=== PATIENT | male | born 1970 | race Caucasian/White ===

== ENCOUNTER 2016-08-10 22:38 | Emergency (ER) | payer OTHER ==
[2016-08-10 23:05] VITALS: RESP 18
[2016-08-10] MEDS ORDERED: KETOROLAC 60 MG/2 ML VIAL IM STA (23:12)
--- NOTE | 2016-08-10 23:16 | ED ---
Lower Extremity Injury HPI - General Chief Complaint: Extremity Injury, Lower Stated Complaint: left knee pain Time Seen by Provider: 08/10/16 23:07 Source: patient, RN notes reviewed Mode of arrival: ambulatory Limitations: no limitations - History of Present Illness Initial Comments: 46 yo mal presents to the ER with cc of left knee pain. Patient has a history of surgery to left in the past due to a tendon injury Patient states this is a leg gave out twice a week had some pain in the posterior knee. Patient states it just feels weak and tired strength like he has increased pain on stretching. Patient states he hasn't had any fever chills with this. Patient denies there is no back pain. Falls traumas or injuries. Patient states she was concerned due to the pains without that he should be seen.Patient denies any recent fever, chills, shortness of breath, chest pain, back pain, abdominal pain , nausea vomiting, numbness or tingling, dysuria or hematuria, constipation or diarrhea, headaches or visual changes, or any other current symptoms. - Related Data Home Medications Medication Instructions Recorded Confirmed oxyCODONE-APAP 10-325MG [Percocet 1 tab PO Q6HR PRN 07/16/15 08/10/16 10-325 mg] Aspirin 81 mg PO DAILY 11/20/15 08/10/16 Albuterol Sulfate [Proair Hfa] 2 puff INHALATION RT-Q6H PRN 08/10/16 08/10/16 Ibuprofen [Motrin] 800 mg PO TID PRN 08/10/16 08/10/16 Previous Rx's Medication Instructions Recorded Orphenadrine [Norflex] 100 mg PO Q12H PRN #12 tablet.er 12/11/15 Allergies Allergy/AdvReac Type Severity Reaction Status Date / Time amoxicillin AdvReac Nausea & Verified 08/10/16 23:32 Vomiting Review of Systems ROS Statement: Those systems with pertinent positive or pertinent negative responses have been documented in the HPI. ROS Other: All systems not noted in ROS Statement are negative. Past Medical History Past Medical History: No Reported History Additional Past Medical History / Comment(s): shingles History of Any Multi-Drug Resistant Organisms: None Reported Past Surgical History: Orthopedic Surgery Additional Past Surgical History / Comment(s): rt shoulder , left knee sx Past Psychological History: No Psychological Hx Reported Smoking Status: Current every day smoker Past Alcohol Use History: None Reported Past Drug Use History: Marijuana General Exam - General Exam Comments Initial Comments: General: The patient is awake and alert, in no distress, and does not appear acutely ill. Neck: The neck is supple, there is no tenderness. Cardiovascular: There is a regular rate and rhythm. No murmur, rub or gallop is appreciated. Respiratory: Lungs are clear to auscultation, respirations are non-labored, breath sounds are equal. No wheezes, stridor, rales, or rhonchi. Musculoskeletal: Sensation intact with 2+ pulses at the left flexion. Full range motion of left hip left knee and left ankle. Patient has has some tenderness with patient posterior knee pain with full range of motion of the posterior knee as well. No deformityswelling noted. 5 out of 5 muscle strength testing. Neurological: CN II-XII intact, There are no obvious motor or sensory deficits. Coordination appears grossly intact. Speech is normal. Skin: Skin is warm and dry and no rashes or lesions are noted. Psychiatric: Normal mood and affect. Limitations: no limitations Course Vital Signs 08/10/16 23:03 Temperature 97.9 F Pulse Rate 86 Respiratory 18 Rate Blood Pressure 114/72 O2 Sat by Pulse 98 Oximetry Medical Decision Making - Medical Decision Making 46-year-old male presents emergency Department chief complaint of left knee pain. At this time the patient's x-rays reviewed and he wasn't 100 reactive 100 and. We did give him a new bites or he informed to follow-up with orthopedic. We discussed return parameters discussed. He stated he understood he is in agreement with the plan and follow-up and return parameters were discussed. The patient will be discharged. Disposition Clinical Impression: Left knee sprain, Osteochondroma of fibula Disposition: HOME SELF-CARE Condition: Stable Instructions: Knee Sprain (ED) Additional Instructions: Please use medication as discussed. Please follow up with family doctor if symptoms have not improved over the next two days. Please return to the emergency room if your symptoms increase or worsen or for any other concerns. Referrals: Armando Dixon DO [Primary Care Provider] - 1-2 days Shay Quigley MD [STAFF PHYSICIAN] - 1-2 days Time of Disposition: 01:03
--- NOTE | 2016-08-11 00:45 | XR ---
EXAMINATION TYPE: XR knee complete LT DATE OF EXAM: 08/10/2016 11:26 PM CLINICAL HISTORY: Left knee gave out anterior medial pain that radiates to the left foot history of p atellar tendon repair TECHNIQUE: Three views of the left knee are obtained. COMPARISON: None. FINDINGS: There is no acute fracture/dislocation evident in left knee. Mild degenerative arthritic changes are present to in the left kidney especially in the patellofemora l joint. Mild effusion is noted in the left suprapatellar bursa and rest of the left knee joint. Mild soft tissue swelling is noted around the left knee. There is suggestion of benign appearing osteochondroma with bone projection in the medial aspect of n emma of the left fibula. IMPRESSION: There is no acute fracture or dislocation in the left knee. Mild degenerative changes. Mild effusion and soft tissue swelling. Benign-appearing osteochondroma is suggested in the neck of the left fibula in the medial aspect.
[2016-08-11 01:18] VITALS: BP 110/66; PULSE 67; TEMP 96.9
== END 2016-08-11 01:18 | disposition home or self-care (01) ==
LOC: EC 22:38
DX: S83.92XA Sprain of unspecified site of left knee, initial encounter (principal); D16.22 Benign neoplasm of long bones of left lower limb; Z79.82 Long term (current) use of aspirin; Z88.0 Allergy status to penicillin; F17.200 Nicotine dependence, unspecified, uncomplicated; X58.XXXA Exposure to other specified factors, initial encounter
CPT/HCPCS: 73562; 99283; 96372; L1830 ×2; J1885

== ENCOUNTER 2017-01-27 01:02 | Emergency (ER) | payer OTHER ==
[2017-01-27 01:22] VITALS: TEMP 97.7
[2017-01-27] MEDS ORDERED: KETOROLAC 60 MG/2 ML VIAL IM STA (01:39)
[2017-01-27] MEDS ORDERED: ORPHENADRINE 30 MG/ML 2 ML VIAL IM STA (01:39)
--- NOTE | 2017-01-27 02:51 | XR ---
EXAM: XR Cervical Spine, Single lateral view CLINICAL HISTORY: Pain TECHNIQUE: Frontal, lateral and oblique views of the cervical spine. COMPARISON: No relevant prior studies available. FINDINGS: Vertebrae: Unremarkable. No acute fracture. Normal alignment. Disc spaces: No acute findings. No significant narrowing. Soft tissues: Unremarkable. IMPRESSION: Normal cervical spine x-rays.
--- NOTE | 2017-01-27 02:53 | ED ---
Neck Injury/Pain HPI - General Chief Complaint: Neck Pain/Injury Stated Complaint: neck pain Time Seen by Provider: 01/27/17 01:26 Source: RN notes reviewed, old records reviewed Mode of arrival: ambulatory Limitations: no limitations - History of Present Illness Initial Comments: Referring male presents the ED chief complaint of neck pain for the past few weeks. Patient reports that became acutely worse over the past day. He reports that he has pain with turning his head left to right. He denies any other associated symptoms. He states he had any x-rays done her known pathology of his neck. Denies any trauma or falls. Patient denies any peripheral paresthesias including numbness or tingling, left arms and legs. - Related Data Home Medications Medication Instructions Recorded Confirmed oxyCODONE-APAP 10-325MG [Percocet 1 tab PO Q6HR PRN 07/16/15 08/10/16 10-325 mg] Aspirin 81 mg PO DAILY 11/20/15 08/10/16 Albuterol Sulfate [Proair Hfa] 2 puff INHALATION RT-Q6H PRN 08/10/16 08/10/16 Ibuprofen [Motrin] 800 mg PO TID PRN 08/10/16 08/10/16 Previous Rx's Medication Instructions Recorded Orphenadrine [Norflex] 100 mg PO Q12H PRN #12 tablet.er 12/11/15 Acetaminophen-Codeine 300-30mg 1 tab PO Q6H PRN #12 tablet 01/27/17 [Tylenol #3] Cyclobenzaprine [Flexeril] 10 mg PO TID #15 tab 01/27/17 Allergies Allergy/AdvReac Type Severity Reaction Status Date / Time amoxicillin AdvReac Nausea & Verified 01/27/17 01:22 Vomiting Review of Systems ROS Statement: Those systems with pertinent positive or pertinent negative responses have been documented in the HPI. ROS Other: All systems not noted in ROS Statement are negative. Past Medical History Past Medical History: No Reported History Additional Past Medical History / Comment(s): shingles History of Any Multi-Drug Resistant Organisms: None Reported Past Surgical History: Orthopedic Surgery Additional Past Surgical History / Comment(s): rt shoulder , left knee sx Past Psychological History: No Psychological Hx Reported Smoking Status: Current every day smoker Past Alcohol Use History: None Reported Past Drug Use History: Marijuana General Exam Limitations: no limitations Course Vital Signs 01/27/17 01:19 Temperature 97.7 F Pulse Rate 74 Respiratory 20 Rate Blood Pressure 122/82 O2 Sat by Pulse 99 Oximetry Disposition Clinical Impression: Neck muscle spasm Disposition: HOME SELF-CARE Condition: Good Instructions: Cervical Strain (ED) Additional Instructions: Patient advised to follow-up with orthopedic and primary care provider. Take the muscle relaxers. Return to the emergency department if any alarming signs or symptoms occur. Prescriptions: Acetaminophen-Codeine 300-30mg [Tylenol #3] 1 tab PO Q6H PRN #12 tablet PRN Reason: Pain Cyclobenzaprine [Flexeril] 10 mg PO TID #15 tab Referrals: Armando Dixon DO [Primary Care Provider] - 1-2 days Time of Disposition: 02:51
[2017-01-27 02:55] VITALS: BP 113/74; PULSE 54; RESP 18
== END 2017-01-27 03:01 | disposition home or self-care (01) ==
LOC: EC 01:02
DX: M62.838 Other muscle spasm (principal); F17.200 Nicotine dependence, unspecified, uncomplicated; Z79.82 Long term (current) use of aspirin; Z88.0 Allergy status to penicillin
CPT/HCPCS: 72040; 99284; 96372 ×2; J2360; J1885

== ENCOUNTER 2017-11-15 14:51 | Emergency (ER) | payer OTHER ==
[2017-11-15] MEDS ORDERED: ORPHENADRINE 30 MG/ML 2 ML VIAL IM STA (15:48)
[2017-11-15] MEDS ORDERED: KETOROLAC 30 MG/ML 1 ML VIAL IM STA (15:48)
--- NOTE | 2017-11-15 15:50 | ED ---
Neck Injury/Pain HPI - General Chief Complaint: Neck Pain/Injury Stated Complaint: cannot turn head/poss pinched nerve Time Seen by Provider: 11/15/17 15:34 Source: patient, RN notes reviewed Mode of arrival: ambulatory Limitations: no limitations - History of Present Illness Initial Comments: This is a 47-year-old male who presents to the emergency department with chief complaint of neck stiffness. Patient states that he woke this morning and had difficulty turning his head due to pain. He denies any falls, injuries or trauma. He did not take any medication prior to arrival. He denies any numbness or tingling or radiation of pain down the arms. Denies recent fevers or chills, chest pain or shortness breath, abdominal pain, nausea or vomiting, dizziness or headache. - Related Data Home Medications Medication Instructions Recorded Confirmed oxyCODONE-APAP 10-325MG [Percocet 1 tab PO Q6HR PRN 07/16/15 08/10/16 10-325 mg] Aspirin 81 mg PO DAILY 11/20/15 08/10/16 Albuterol Sulfate [Proair Hfa] 2 puff INHALATION RT-Q6H PRN 08/10/16 08/10/16 Ibuprofen [Motrin] 800 mg PO TID PRN 08/10/16 08/10/16 Previous Rx's Medication Instructions Recorded Orphenadrine [Norflex] 100 mg PO Q12H PRN #12 tablet.er 12/11/15 Acetaminophen-Codeine 300-30mg 1 tab PO Q6H PRN #12 tablet 01/27/17 [Tylenol #3] Cyclobenzaprine [Flexeril] 10 mg PO TID #15 tab 01/27/17 Allergies Allergy/AdvReac Type Severity Reaction Status Date / Time amoxicillin AdvReac Nausea & Verified 11/15/17 15:29 Vomiting Review of Systems ROS Statement: Those systems with pertinent positive or pertinent negative responses have been documented in the HPI. ROS Other: All systems not noted in ROS Statement are negative. Past Medical History Past Medical History: No Reported History Additional Past Medical History / Comment(s): shingles History of Any Multi-Drug Resistant Organisms: None Reported Past Surgical History: Orthopedic Surgery Additional Past Surgical History / Comment(s): rt shoulder , left knee sx Past Psychological History: No Psychological Hx Reported Smoking Status: Current every day smoker Past Alcohol Use History: None Reported Past Drug Use History: Marijuana General Exam - General Exam Comments Initial Comments: General: Awake and alert, well-developed; in no apparent distress. HEENT: Head atraumatic, normocephalic. Pupils are equal, round and reactive to light. Extraocular movements intact. Oropharynx moist without erythema or exudate. Neck: Supple. Normal ROM, however pain is elicited with rotation. There is tenderness on palpation of cervical musculature. No bony point tenderness. Cardiovascular: Regular rate and rhythm. No murmurs, rubs or gallops. Chest symmetrical. Respiratory: Lungs clear to auscultation bilaterally. No wheezes, rales or rhonchi. Normal respiratory effort with no use of accessory muscles. Musculoskeletal: Normal ROM, no tenderness bilateral upper and lower extremities. Ambulating normally. Skin: [place], warm and dry without rashes or lesions. Neurological: Alert and oriented x3. CN II-XII grossly intact. Speech is fluent and answers are appropriate. No focal neuro deficits. Psychiatric: Normal mood and affect. No overt signs of depression or anxiety noted. Limitations: no limitations Course Vital Signs 11/15/17 15:26 Temperature 97.3 F L Pulse Rate 62 Respiratory 18 Rate Blood Pressure 139/96 O2 Sat by Pulse 97 Oximetry Medical Decision Making - Medical Decision Making This is a 47-year-old male who presents to the emergency department with chief complaint of acute neck pain. Patient states he awoke this morning with a stiff neck and has difficulty rotating due to pain. Denies any fevers or chills. Denies any numbness or tingling or radiation of pain down the arms. He is neurovascularly intact. Vital signs are stable and he is in no acute distress. Denies any injuries, falls or trauma. Patient given Toradol and Norflex while in the emergency department. Patient states pain is improved. Likely suffering from cervical strain. Recommended ibuprofen 600 mg every 6 hours. Patient will be discharged home at this time. He is in agreement with plan and voices understanding. All questions were answered. Disposition Clinical Impression: Strain of neck muscle Disposition: HOME SELF-CARE Condition: Good Instructions: Cervical Strain (ED) Additional Instructions: May take ibuprofen 600 mg every 6 hours for the next 2-3 days. Please follow up with primary care provider within 1-2 days. Return to emergency department if symptoms should worsen or any concerns arise. Is patient prescribed a controlled substance at d/c from ED?: No Referrals: Armando Dixon DO [Primary Care Provider] - 1-2 days Time of Disposition: 16:15
[2017-11-15 16:26] VITALS: BP 121/82; PULSE 60; RESP 16; TEMP 97.6
== END 2017-11-15 16:26 | disposition home or self-care (01) ==
LOC: EC 14:51
DX: S16.1XXA Strain of muscle, fascia and tendon at neck level, initial encounter (principal); F17.200 Nicotine dependence, unspecified, uncomplicated; Z79.82 Long term (current) use of aspirin; Z88.0 Allergy status to penicillin; X58.XXXA Exposure to other specified factors, initial encounter
CPT/HCPCS: 99283; 96372 ×2; J2360; J1885

== ENCOUNTER 2017-11-30 11:39 | Emergency (ER) | payer OTHER ==
[2017-11-30 12:31] LABS: Basophils % (A) 1 %; Eosinophils # (A) 0.2 k/uL (0-0.7); Eosinophils % (A) 3 %; HCT 53.9 % (39.0-53.0); HGB 18.4 gm/dL (13.0-17.5); Lymphocytes # (A) 1.7 k/uL (1.0-4.8); Lymphocytes % (A) 21 %; MCH 30.6 pg (25.0-35.0); MCHC 34.2 g/dL (31.0-37.0); MCV 89.7 fL (80.0-100.0); Mean Platelet Volume 6.9; Monocytes # (A) 0.4 k/uL (0-1.0); Monocytes % (A) 5 %; Neutrophils # (A) 5.7 k/uL (1.3-7.7); Neutrophils % (A) 69 %; Platelet Count 252 k/uL (150-450); RDW 13.1 % (11.5-15.5); WBC 8.2 k/uL (3.8-10.6)
[2017-11-30 12:33] LABS: Appearance,Urine Clear (Clear); Bilirubin,Urine Negative (Negative); Blood,Urine Negative (Negative); Color,Urine Yellow; Glucose,Urine (UA) Negative (Negative); Ketones,Urine 2+ (Negative); Leukocyte Esterase,Urine Negative (Negative); Nitrite,Urine Negative (Negative); Protein,Urine Negative (Negative); Specific Gravity,Urine 1.009 (1.001-1.035); Urobilinogen,Urine <2.0 mg/dL (<2.0)
[2017-11-30 12:42] LABS: ALT 40 U/L (21-72); AST 31 U/L (17-59); Albumin 4.6 g/dL (3.5-5.0); Alkaline Phosphatase 70 U/L (38-126); Amylase 54 U/L (30-110); Anion Gap 14 mmol/L; Blood Urea Nitrogen 9 mg/dL (9-20); Calcium 9.7 mg/dL (8.4-10.2); Carbon Dioxide 22 mmol/L (22-30); Chloride 107 mmol/L (98-107); Glucose 116 mg/dL (74-99); Lipase 36 U/L (23-300); Potassium 4.1 mmol/L (3.5-5.1); Sodium 143 mmol/L (137-145); Total Bilirubin 1.1 mg/dL (0.2-1.3); Total Protein 7.4 g/dL (6.3-8.2)
[2017-11-30] MEDS ORDERED: ONDANSETRON ODT 4 MG TAB PO STA (13:19)
[2017-11-30] MEDS ORDERED: ONDANSETRON 4 MG ODT STARTER PACK 2 TAB BTL PO STA (13:39)
--- NOTE | 2017-11-30 13:42 | ED ---
Nausea/Vomiting/Diarrhea HPI - General Chief complaint: Nausea/Vomiting/Diarrhea Stated complaint: NVD Time Seen by Provider: 11/30/17 13:18 Source: patient, RN notes reviewed Mode of arrival: ambulatory Limitations: no limitations - History of Present Illness Initial comments: This is a 47-year-old male presents emergency Department chief complaint of nausea vomiting diarrhea. Patient states symptoms started yesterday and have slightly improved today but he still had some upset stomach feeling. He has primarily more diarrhea has not vomited in 2 hours. Patient denies any known fever complaints of chills. He denies any sick contacts no recent antibiotic use no recent traveling. Patient said no prior abdominal surgeries. Patient denies chest pain, shortness breath, headache or dizziness. - Related Data Home Medications Medication Instructions Recorded Confirmed Naproxen Sodium [Aleve] 220 mg PO BID PRN 11/30/17 11/30/17 diphenhydrAMINE HCL [Benadryl] 25 mg PO Q6H PRN 11/30/17 11/30/17 Previous Rx's Medication Instructions Recorded Ondansetron Odt [Zofran Odt] 4 mg PO Q8HR PRN #10 tab 11/30/17 Allergies Allergy/AdvReac Type Severity Reaction Status Date / Time amoxicillin AdvReac Nausea & Verified 11/30/17 13:16 Vomiting Review of Systems ROS Statement: Those systems with pertinent positive or pertinent negative responses have been documented in the HPI. ROS Other: All systems not noted in ROS Statement are negative. Past Medical History Past Medical History: No Reported History Additional Past Medical History / Comment(s): shingles tendonitis and carpel tunnel History of Any Multi-Drug Resistant Organisms: None Reported Past Surgical History: Orthopedic Surgery Additional Past Surgical History / Comment(s): rt shoulder , left knee sx Past Psychological History: No Psychological Hx Reported Smoking Status: Current every day smoker Past Alcohol Use History: None Reported Past Drug Use History: Marijuana General Exam Limitations: no limitations General appearance: alert, in no apparent distress Head exam: Present: atraumatic, normocephalic, normal inspection Eye exam: Present: normal appearance, PERRL, EOMI. Absent: scleral icterus, conjunctival injection, periorbital swelling ENT exam: Present: normal exam, normal oropharynx, mucous membranes moist Neck exam: Present: normal inspection. Absent: tenderness, meningismus, lymphadenopathy Respiratory exam: Present: normal lung sounds bilaterally. Absent: respiratory distress, wheezes, rales, rhonchi, stridor Cardiovascular Exam: Present: regular rate, normal rhythm, normal heart sounds. Absent: systolic murmur, diastolic murmur, rubs, gallop, clicks GI/Abdominal exam: Present: soft, tenderness (Mild epigastric), normal bowel sounds. Absent: distended, guarding, rebound, rigid Course Vital Signs 11/30/17 11:57 Temperature 98.3 F Pulse Rate 77 Respiratory 18 Rate Blood Pressure 124/96 O2 Sat by Pulse 99 Oximetry Medical Decision Making - Medical Decision Making 47-year-old male presented for nausea vomiting diarrhea. Patient has gastroenteritis. Patient we given Zofran. Patient's abdomen essentially benign other than mild epigastric pain from emesis. Patient will follow-up tomorrow return for any worsening symptoms. - Lab Data Result diagrams: 11/30/17 12:19 11/30/17 12:19 Lab Results 11/30/17 11/30/17 11/30/17 Range/Units 12:19 12:19 12:19 WBC 8.2 (3.8-10.6) k/uL RBC 6.00 H (4.30-5.90) m/uL Hgb 18.4 H (13.0-17.5) gm/dL Hct 53.9 H (39.0-53.0) % MCV 89.7 (80.0-100.0) fL MCH 30.6 (25.0-35.0) pg MCHC 34.2 (31.0-37.0) g/dL RDW 13.1 (11.5-15.5) % Plt Count 252 (150-450) k/uL Neutrophils % 69 % Lymphocytes % 21 % Monocytes % 5 % Eosinophils % 3 % Basophils % 1 % Neutrophils # 5.7 (1.3-7.7) k/uL Lymphocytes # 1.7 (1.0-4.8) k/uL Monocytes # 0.4 (0-1.0) k/uL Eosinophils # 0.2 (0-0.7) k/uL Basophils # 0.0 (0-0.2) k/uL Sodium 143 (137-145) mmol/L Potassium 4.1 (3.5-5.1) mmol/L Chloride 107 (98-107) mmol/L Carbon Dioxide 22 (22-30) mmol/L Anion Gap 14 mmol/L BUN 9 (9-20) mg/dL Creatinine 0.73 (0.66-1.25) mg/dL Est GFR (CKD-EPI)AfAm >90 (>60 ml/min/1.73 sqM) Est GFR (CKD-EPI)NonAf >90 (>60 ml/min/1.73 sqM) Glucose 116 H (74-99) mg/dL Calcium 9.7 (8.4-10.2) mg/dL Total Bilirubin 1.1 (0.2-1.3) mg/dL AST 31 (17-59) U/L ALT 40 (21-72) U/L Alkaline Phosphatase 70 (38-126) U/L Total Protein 7.4 (6.3-8.2) g/dL Albumin 4.6 (3.5-5.0) g/dL Amylase 54 (30-110) U/L Lipase 36 (23-300) U/L Urine Color Yellow Urine Appearance Clear (Clear) Urine pH 6.0 (5.0-8.0) Ur Specific [place] 1.009 (1.001-1.035) Urine Protein Negative (Negative) Urine Glucose (UA) Negative (Negative) Urine Ketones 2+ H (Negative) Urine Blood Negative (Negative) Urine Nitrite Negative (Negative) Urine Bilirubin Negative (Negative) Urine Urobilinogen <2.0 (<2.0) mg/dL Ur Leukocyte Esterase Negative (Negative) Disposition Clinical Impression: Gastroenteritis Disposition: HOME SELF-CARE Condition: Stable Instructions: Gastroenteritis (ED) Additional Instructions: Please return to the Emergency Department if symptoms worsen or any other concerns. Prescriptions: Ondansetron Odt [Zofran Odt] 4 mg PO Q8HR PRN #10 tab PRN Reason: Nausea Is patient prescribed a controlled substance at d/c from ED?: No Referrals: Armando Dixon DO [Primary Care Provider] - 1-2 days Time of Disposition: 13:42
[2017-11-30 13:50] VITALS: BP 127/77; PULSE 55; RESP 20; TEMP 98.6
== END 2017-11-30 14:00 | disposition home or self-care (01) ==
LOC: EC 11:39
DX: K52.9 Noninfective gastroenteritis and colitis, unspecified (principal); F17.200 Nicotine dependence, unspecified, uncomplicated; Z88.0 Allergy status to penicillin
CPT/HCPCS: 36415; 80053; 82150; 83690; 85025; 81003; 99284; S0119

== ENCOUNTER 2018-05-06 14:12 | Emergency (ER) | payer OTHER ==
[2018-05-06 14:31] VITALS: RESP 18
[2018-05-06] MEDS ORDERED: KETOROLAC 30 MG/ML 1 ML VIAL IM STA (15:29)
[2018-05-06] MEDS ORDERED: ORPHENADRINE 30 MG/ML 2 ML VIAL IM STA (15:29)
--- NOTE | 2018-05-06 15:53 | CT ---
EXAMINATION TYPE: CT lumbar spine wo con DATE OF EXAM: 05/06/2018 COMPARISON: HISTORY: LOWER BACK PAIN X3 DAYS CT DLP: 596.3 mGycm Contrast: None TECHNIQUE: CT of the lumbar spine is performed on a spiral scan at 3 mm thick sections. Reconstructed images are performed in the coronal and sagittal planes. FINDINGS: T12-L1: No focal disc herniation or significant disc bulge is evident. No spinal canal stenosis or neural foraminal stenosis is present. L1-L2: No focal disc herniation or significant disc bulge is evident. No spinal canal stenosis or n eural foraminal stenosis is present L2-L3: No focal disc herniation or significant disc bulge is evident. No spinal canal stenosis or n eural foraminal stenosis is present L3-L4: No focal disc herniation or significant disc bulge is evident. No spinal canal stenosis or n eural foraminal stenosis is present L4-L5: No focal disc herniation or significant disc bulge is evident. No spinal canal stenosis or n eural foraminal stenosis is present L5-S1: No focal disc herniation or significant disc bulge is evident. No spinal canal stenosis or n eural foraminal stenosis is present Vertebral alignment appears normal. No acute fracture evident. Vertebral body heights and disc height s appear preserved. IMPRESSION: No suspicious acute changes lumbar spine.
--- NOTE | 2018-05-06 16:40 | ED ---
General Adult HPI - General Chief complaint: Neck Pain/Injury Stated complaint: Neck pain Time Seen by Provider: 05/06/18 15:14 Source: patient, RN notes reviewed Mode of arrival: ambulatory Limitations: no limitations - History of Present Illness Initial comments: 48-year-old male presents to the emergency determine for chief complaint of neck pain times one year. Patient states that he has intermittent worsening of pain. He states that today is one of those days. He states he has terminated tingling in the arms. He denies numbness or shooting pain. He states he does have shooting pain in his neck. Patient also states he has lumbar spine pain. He states this has been going on for a few weeks. He denies any shooting pain but does admit to tingling in the lower extremities. Patient states his leg did give out twice yesterday. Patient is unsure if this was due to weakness or pain. He states he also has a patellar tendon injury and this may have been the cause of his leg giving out. Patient has not had an MRI. He states he just got insurance and will be following up with the primary care provider shortly. He denies any bladder or bowel changes. He denies any saddle anesthesia. Patient denies any history of IV drug abuse, fevers, chronic steroid use, or history of cancer.Patient has no other complaints at this time including shortness of breath, chest pain, abdominal pain, nausea or vomiting, headache, or visual changes. - Related Data Home Medications Medication Instructions Recorded Confirmed Naproxen Sodium [Aleve] 220 mg PO BID PRN 11/30/17 05/06/18 diphenhydrAMINE HCL [Benadryl] 25 mg PO Q6H PRN 11/30/17 05/06/18 Allergies Allergy/AdvReac Type Severity Reaction Status Date / Time amoxicillin AdvReac Nausea & Verified 05/06/18 14:56 Vomiting Review of Systems ROS Statement: Those systems with pertinent positive or pertinent negative responses have been documented in the HPI. ROS Other: All systems not noted in ROS Statement are negative. Past Medical History Past Medical History: No Reported History Additional Past Medical History / Comment(s): shingles tendonitis and carpel tunnel History of Any Multi-Drug Resistant Organisms: None Reported Past Surgical History: Orthopedic Surgery Additional Past Surgical History / Comment(s): rt shoulder , left knee sx Past Psychological History: No Psychological Hx Reported Smoking Status: Current every day smoker Past Alcohol Use History: None Reported Past Drug Use History: Marijuana General Exam Limitations: no limitations General appearance: alert, in no apparent distress Head exam: Present: atraumatic, normocephalic, normal inspection Eye exam: Present: normal appearance, PERRL, EOMI. Absent: scleral icterus, conjunctival injection, periorbital swelling ENT exam: Present: normal exam, mucous membranes moist Neck exam: Present: normal inspection, full ROM. Absent: tenderness, meningismus, lymphadenopathy Respiratory exam: Present: normal lung sounds bilaterally. Absent: respiratory distress, wheezes, rales, rhonchi, stridor Cardiovascular Exam: Present: regular rate, normal rhythm, normal heart sounds. Absent: systolic murmur, diastolic murmur, rubs, gallop, clicks GI/Abdominal exam: Present: soft, normal bowel sounds. Absent: distended, tenderness, guarding, rebound, rigid Extremities exam: Present: full ROM (Strength 5 out of 5 in upper and lower extremities bilaterally. [facility] strength 5 out of 5 bilaterally.), normal capillary refill (Capillary refill less than 2 seconds DP pulses 2+ in BLE. Radial pulses 2+ and upper extremities bilaterally), other (Patient has sensation intact in all extremities.) Back exam: Present: tenderness (Tenderness in the cervical and lumbar spines). Absent: CVA tenderness (R), CVA tenderness (L) Neurological exam: Present: alert, oriented X3, CN II-XII intact, normal gait Psychiatric exam: Present: normal affect, normal mood Course Vital Signs 05/06/18 14:29 Temperature 97.7 F Pulse Rate 78 Respiratory 18 Rate Blood Pressure 153/83 O2 Sat by Pulse 97 Oximetry Medical Decision Making - Medical Decision Making 48-year-old male presents to the emergency department for a chief complaint of neck pain times one year. Patient states he has radiating pain down the arms as well as tingling. States this has been ongoing chronically. Patient also has back pain for the past few weeks. Patient states he may have weakness in the legs. He states his left leg gave out that he is unsure if this was due to pain. Patient also has patellar tendinopathy and states it may have been due to that. On exam neurovascular intact in upper and lower extremities bilaterally. Patient is able to ambulate normally. Patient denies any saddle anesthesia or changes in bladder or bowel function. Patient has full strength in upper and lower extremities bilaterally. Computed tomography scan was ordered of the lumbar spinous patient was unsure if he was having weakness in the lower semis which was negative for any disc herniation or abnormality. At this point patient is likely expressing chronic cervical radiculopathy. He will take Motrin and Tylenol for pain. He will follow-up with Dr. Toscano in one to 2 days. He will return immediately to the emergency department if he has any worsening symptoms, bladder or bowel changes, or saddle anesthesia which was discussed with him. Patient agrees with this plan of action. He asks for a work note as he did not go to work today. All questions were answered. Disposition Clinical Impression: Cervical radiculopathy, Lumbar radiculopathy Disposition: HOME SELF-CARE Condition: Good Instructions: Neck Pain (ED) Additional Instructions: Please take Motrin and Tylenol for pain. Please follow-up with primary care in 1-2 days. Return immediately to the emergency department if you have any worsening symptoms. Is patient prescribed a controlled substance at d/c from ED?: No Referrals: Sigifredo Wilde MD [Primary Care Provider] - 1-2 days Luiz Toscano DO [Doctor of Osteopathic Medicine] - 1-2 days Time of Disposition: 16:39
[2018-05-06 22:54] VITALS: BP 150/80; PULSE 76; TEMP 98
== END 2018-05-06 17:23 | disposition home or self-care (01) ==
LOC: EC 14:12
DX: M54.12 Radiculopathy, cervical region (principal); M54.16 Radiculopathy, lumbar region; M76.50 Patellar tendinitis, unspecified knee; F17.200 Nicotine dependence, unspecified, uncomplicated; Z98.890 Other specified postprocedural states; Z88.0 Allergy status to penicillin
CPT/HCPCS: 72131; 99283; 96372 ×2; J2360; J1885

== ENCOUNTER 2018-05-09 09:44 | Emergency (ER) | payer OTHER ==
[2018-05-09 10:51] VITALS: BP 131/93; PULSE 74; RESP 18; TEMP 98
[2018-05-09] MEDS ORDERED: ORPHENADRINE 30 MG/ML 2 ML VIAL IM STA (11:13)
[2018-05-09] MEDS ORDERED: KETOROLAC 60 MG/2 ML VIAL IM STA (11:13)
--- NOTE | 2018-05-09 11:31 | ED ---
General Adult HPI - General Chief complaint: Neck Pain/Injury Stated complaint: Neck pain Time Seen by Provider: 05/09/18 11:03 Source: patient, RN notes reviewed, old records reviewed Mode of arrival: ambulatory - History of Present Illness Initial comments: Patient 48-year-old male presented to the emergency room today with a chief complaint neck pain over the last year. Patient is receiving recently and was given Toradol and Norflex which did help his symptoms. He states that he was supposed to follow-up and was unsure which doctor he was supposed to see. Patient states that he was planning to call today. Patient states still having neck pain. Has been using ibuprofen with some relief. He states pain is worse with rotation to the right and both with flexion and extension. Patient denies any injury or trauma. He does admit that he has bilateral numbness and tingling sensation into the arms. He states that this is new and has been going on for some time but seems to be getting worse. Patient denies any complaints or symptoms at this time. Patient denies any recent fever, chills, shortness of breath, chest pain, abdominal pain, nausea or vomiting, dysuria or hematuria, constipation or diarrhea, headaches or visual changes, or any other complaints. - Related Data Home Medications Medication Instructions Recorded Confirmed Naproxen Sodium [Aleve] 220 mg PO BID PRN 11/30/17 05/06/18 diphenhydrAMINE HCL [Benadryl] 25 mg PO Q6H PRN 11/30/17 05/06/18 Previous Rx's Medication Instructions Recorded Orphenadrine [Norflex] 100 mg PO Q12H #20 tablet.er 05/09/18 Allergies Allergy/AdvReac Type Severity Reaction Status Date / Time amoxicillin AdvReac Nausea & Verified 05/06/18 14:56 Vomiting Review of Systems ROS Statement: Those systems with pertinent positive or pertinent negative responses have been documented in the HPI. ROS Other: All systems not noted in ROS Statement are negative. Past Medical History Past Medical History: No Reported History Additional Past Medical History / Comment(s): shingles tendonitis and carpel tunnel History of Any Multi-Drug Resistant Organisms: None Reported Past Surgical History: Orthopedic Surgery Additional Past Surgical History / Comment(s): rt shoulder , left knee sx Past Psychological History: No Psychological Hx Reported Smoking Status: Current every day smoker Past Alcohol Use History: None Reported Past Drug Use History: Marijuana General Exam - General Exam Comments Initial Comments: General: The patient is awake and alert, in no distress, and does not appear acutely ill. Eye: Pupils are equal, round and reactive to light. Extra-ocular movements are intact. No nystagmus. There is normal conjunctiva bilaterally. No signs of icterus. Ears, nose, mouth and throat: There are moist mucous membranes and no oral lesions. Neck: The neck is supple, there is no tenderness or JVD. Cardiovascular: There is a regular rate and rhythm. No murmur, rub or gallop is appreciated. Respiratory: Lungs are clear to auscultation, respirations are non-labored, breath sounds are equal. No wheezes, stridor, rales, or rhonchi. Musculoskeletal: Normal appearance of cervical, thoracic or lumbar spine. No step-off or deformity. Patient does have increased tenderness. Both on left right side of cervical spine. Patient's pain is reproduced with rotation to the left and right. Sensations intact. Radial pulse 2+. Strength 5/5. Neurological: A&O x 3. CN II-XII intact, There are no obvious motor or sensory deficits. Coordination appears grossly intact. Speech is normal. Skin: Skin is warm and dry and no rashes or lesions are noted. Psychiatric: Cooperative, appropriate mood & affect, normal judgment. Course Vital Signs 05/09/18 10:48 Temperature 98.0 F Pulse Rate 74 Respiratory 18 Rate Blood Pressure 131/93 O2 Sat by Pulse 100 Oximetry Medical Decision Making - Medical Decision Making Patient for 8-year-old male presenting for neck pain. He does admit this been ongoing over the last year. There is no new injury or trauma. Was discussed that patient should follow-up with orthopedic doctor. He'll be given information for follow-up once again. Patient states her symptoms today. He states he's had the numbness and tingling into the arms bilaterally for some time. Patient does admit that he was seen here recently for his back pain was given a shot of Toradol and Norflex which did relieve his symptoms. Patient will be given dose is here today will be discharged home continue on anti- inflammatories and given a prescription for Norflex to use at home. Positive may make him drowsy. Advised follow-up orthopedics over the next 2 days. Advised return if symptoms increase or worsen. Disposition Clinical Impression: Cervical radiculopathy, Neck pain Disposition: HOME SELF-CARE Condition: Good Instructions: Cervical Strain (ED) Additional Instructions: Please use medication as discussed. Please follow-up with orthopedic/family doctor in the next 2 days of symptoms have not improved. Please return to emergency room if the symptoms increase or worsen or for any other concerns. Prescriptions: Orphenadrine [Norflex] 100 mg PO Q12H #20 tablet.er Is patient prescribed a controlled substance at d/c from ED?: No Referrals: Sigifredo Wilde MD [Primary Care Provider] - 1-2 days Shay Quigley MD [STAFF PHYSICIAN] - 1-2 days Time of Disposition: 11:30
== END 2018-05-09 12:00 | disposition home or self-care (01) ==
LOC: EC 09:44
DX: M54.12 Radiculopathy, cervical region (principal); F17.200 Nicotine dependence, unspecified, uncomplicated; Z88.0 Allergy status to penicillin
CPT/HCPCS: 99283; 96372 ×2; J2360; J1885

== ENCOUNTER 2018-06-23 07:35 | Emergency (ER) | payer OTHER ==
[2018-06-23 07:40] VITALS: BP 124/83; PULSE 70; RESP 16; TEMP 97.8
[2018-06-23] MEDS ORDERED: ACET/COD 300 MG/30 MG STARTER PACK 6 TAB BTL PO STA (07:53)
--- NOTE | 2018-06-23 07:54 | ED ---
Extremity Problem HPI - General Chief complaint: Extremity Problem,Nontraumatic Stated complaint: elbow pain, shooting to hands Time Seen by Provider: 06/23/18 07:46 Source: patient, RN notes reviewed Mode of arrival: ambulatory Limitations: no limitations - History of Present Illness Initial comments: 48-year-old male presents emergency Department chief complaint of bilateral arm pain and numbness. Patient states that he's had carpal tunnel the past but states this started almost now. Patient states that he's had EMG [address] Sinclair. 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 Patient states that he uses hands daily. Patient states that the more uses hands were symptoms get. He does wake up with his hands numb. Patient denies any weakness associated. Denies any chest pain or shortness of breath. Patient also has known neck issues. Patient states he had a missed work today so he came the emergency department. - Related Data Home Medications Medication Instructions Recorded Confirmed Naproxen Sodium [Aleve] 220 mg PO BID PRN 11/30/17 05/06/18 diphenhydrAMINE HCL [Benadryl] 25 mg PO Q6H PRN 11/30/17 05/06/18 Previous Rx's Medication Instructions Recorded Orphenadrine [Norflex] 100 mg PO Q12H #20 tablet.er 05/09/18 predniSONE 50 mg PO DAILY #5 tab 06/23/18 Allergies Allergy/AdvReac Type Severity Reaction Status Date / Time amoxicillin AdvReac Nausea & Verified 05/06/18 14:56 Vomiting Review of Systems ROS Statement: Those systems with pertinent positive or pertinent negative responses have been documented in the HPI. ROS Other: All systems not noted in ROS Statement are negative. Past Medical History Past Medical History: No Reported History Additional Past Medical History / Comment(s): shingles tendonitis and carpel tunnel chronic neck pain History of Any Multi-Drug Resistant Organisms: None Reported Past Surgical History: Orthopedic Surgery Additional Past Surgical History / Comment(s): rt shoulder , left knee sx Past Psychological History: No Psychological Hx Reported Smoking Status: Current every day smoker Past Alcohol Use History: None Reported Past Drug Use History: Marijuana General Exam Limitations: no limitations General appearance: alert, in no apparent distress Head exam: Present: atraumatic, normocephalic, normal inspection Neck exam: Present: normal inspection, full ROM. Absent: tenderness, meningismus, lymphadenopathy Respiratory exam: Present: normal lung sounds bilaterally. Absent: respiratory distress, wheezes, rales, rhonchi, stridor Cardiovascular Exam: Present: regular rate, normal rhythm, normal heart sounds. Absent: systolic murmur, diastolic murmur, rubs, gallop, clicks Extremities exam: Present: other (Bilateral upper extremities neurovascular intact, full range of motion full-strength, positive Tinel's, tenderness over the ulnar groove region reproducible paresthesias) Course Vital Signs 06/23/18 07:37 Temperature 97.8 F Pulse Rate 70 Respiratory 16 Rate Blood Pressure 124/83 O2 Sat by Pulse 98 Oximetry Medical Decision Making - Medical Decision Making 48-year-old male presented for bilateral arm pain and numbness. Patient has cubital tunnel syndrome with most likely carpal tunnel syndrome. Patient will follow-up with Dr. Sinclair as he seen him in the past. Patient be given steroids. Return parameters were discussed. Disposition Clinical Impression: Cubital tunnel syndrome of both upper extremities Disposition: HOME SELF-CARE Condition: Stable Instructions: Cubital Tunnel Syndrome (ED) Additional Instructions: Please return to the Emergency Department if symptoms worsen or any other concerns. Prescriptions: predniSONE 50 mg PO DAILY #5 tab Is patient prescribed a controlled substance at d/c from ED?: No Referrals: Sigifredo Wilde MD [Primary Care Provider] - 1-2 days Otoniel Sinclair MD [STAFF PHYSICIAN] - 1-2 days Time of Disposition: 07:54
== END 2018-06-23 08:08 | disposition home or self-care (01) ==
LOC: EC 07:35
DX: G56.03 Carpal tunnel syndrome, bilateral upper limbs (principal); F17.200 Nicotine dependence, unspecified, uncomplicated; Z88.0 Allergy status to penicillin
CPT/HCPCS: 99283

== ENCOUNTER 2018-08-29 16:18 | Emergency (ER) | payer OTHER ==
[2018-08-29 17:57] VITALS: BP 128/82; RESP 18; TEMP 98.1
[2018-08-29] MEDS ORDERED: IPRATROPIUM-ALBUTEROL 3 ML NEB INHALATION STA ×2 (18:35→19:14)
[2018-08-29] MEDS ORDERED: methylPREDNISolone SOD SUCCI 125 MG/2 ML VIAL IM ONE (18:35)
[2018-08-29] MEDS ORDERED: HYDROcodone/APAP 7.5-325MG 1 EACH TAB PO ONE (18:36)
--- NOTE | 2018-08-29 19:07 | XR ---
EXAMINATION TYPE: XR chest 2V DATE OF EXAM: 08/29/2018 COMPARISON: 09/17/2014 HISTORY: Neck pain TECHNIQUE: Frontal and lateral views of the chest are obtained. FINDINGS: Heart and mediastinum are normal. Lungs are clear. Diaphragm is normal. Bony thorax is int act. There is minimal pleural thickening at the lung apices. IMPRESSION: No active cardiopulmonary disease. No change.
--- NOTE | 2018-08-29 19:14 | ED ---
URI HPI - General Chief Complaint: Upper Respiratory Infection Stated Complaint: Cough, URI Source: patient Mode of arrival: ambulatory Limitations: no limitations - History of Present Illness Initial Comments: 48-year-old male with past medical history of previous smoking recently quit within last week presenting today for cc of "i have upper respiratory infection " and chronic neck pain. Patient states that he feels he has upper respiratory infection he has had cough sputum production. In addition he states that he has had neck pain he states this is chronic he's had an MRI is following his primary care outpatient. He states he has a nerve test scheduled for Wednesday. He states he does not need further evaluation of the neck, he was requesting medication for the chronic pain. He denies any changes or trauma to the neck. He denies any difficulty with neck stiffness, photophobia or fever. Patient denies any ear pain, sore throat, nausea vomiting of gout pain chest pain dyspnea and dyspnea on exertion, lower extremity edema, numbness tingling or loss sensation, muscle weakness, visual changes or any other complaints today. Upon arrival patient is afebrile, VS within normal limits. - Related Data Home Medications Medication Instructions Recorded Confirmed Naproxen Sodium [Aleve] 220 mg PO DAILY PRN 11/30/17 06/23/18 Aspirin EC [Ecotrin Low Dose] 81 mg PO DAILY 06/23/18 06/23/18 Previous Rx's Medication Instructions Recorded predniSONE 50 mg PO DAILY #5 tab 06/23/18 Albuterol Inhaler [Ventolin Hfa 1 - 2 puff INHALATION RT-Q6H PRN 7 08/29/18 Inhaler] Days #1 inhaler Azithromycin [Zithromax Z-pack] 0 mg PO DIRECTED #6 tab 08/29/18 predniSONE 20 mg PO DAILY 5 Days #5 tab 08/29/18 Allergies Allergy/AdvReac Type Severity Reaction Status Date / Time amoxicillin AdvReac Nausea & Verified 06/23/18 07:59 Vomiting Review of Systems ROS Statement: Those systems with pertinent positive or pertinent negative responses have been documented in the HPI. ROS Other: All systems not noted in ROS Statement are negative. Past Medical History Past Medical History: No Reported History Additional Past Medical History / Comment(s): shingles tendonitis and carpel tunnel chronic neck pain History of Any Multi-Drug Resistant Organisms: None Reported Past Surgical History: Orthopedic Surgery Additional Past Surgical History / Comment(s): rt shoulder , left knee sx Past Psychological History: No Psychological Hx Reported Smoking Status: Current every day smoker Past Alcohol Use History: None Reported Past Drug Use History: Marijuana General Exam - General Exam Comments Initial Comments: General: The patient is awake and alert, in no distress, and does not appear acutely ill. Eye: Pupils are equal, round and reactive to light, extra-ocular movements are intact. No nystagmus. There is normal conjunctiva bilaterally. No signs of icterus. Ears, nose, mouth and throat: There are moist mucous membranes and no oral lesions. No anterior cervical lymphadenopathy. Oropharynx not erythematous, there is no tonsillar enlargement exudates or lesions. Uvula midline. Tympanic membranes are within normal limits bilaterally. No abnormalities noted of the external auditory canals. Neck: The neck is supple, there is no tenderness or JVD. No midline tenderness to palpation of the cervical spine, there is paravertebral tenderness. Cardiovascular: There is a regular rate and rhythm. No murmur, rub or gallop is appreciated. Respiratory: Lungs are clear to auscultation, respirations are non-labored, breath sounds are equal. Mild expiratory wheeze. No stridor, rales, or rhonchi. No use of accessory muscles no cyanosis retractions or abdominal breathing. Gastrointestinal: Soft, non-distended, non-tender abdomen without masses or organomegaly noted. There is no rebound or guarding present. Bowel sounds are unremarkable. Musculoskeletal: Normal ROM, no tenderness. Strength 5/5 of the UE equal b/l. Sensation intact of the UE equal b/l. Radial pulses equal bilaterally 2+. Neurological: A&O x 3. CN II-XII intact, There are no obvious motor or sensory deficits. Coordination appears grossly intact. Speech is normal. Skin: Skin is warm and dry and no rashes or lesions are noted. Psychiatric: Cooperative, appropriate mood & affect, normal judgment. Limitations: no limitations Course Vital Signs 08/29/18 08/29/18 08/29/18 17:55 19:04 19:13 Temperature 98.1 F Pulse Rate 91 64 66 Respiratory 18 Rate Blood Pressure 128/82 O2 Sat by Pulse 96 Oximetry 08/29/18 08/29/18 19:16 19:25 Temperature Pulse Rate 66 65 Respiratory Rate Blood Pressure O2 Sat by Pulse Oximetry Medical Decision Making - Medical Decision Making 48-year-old male presenting today for cc of upper respiratory infection. Mild extra wheezes consistent with COPD on examination. Patient given 2 DuoNeb treatments with significant improvement of wheezing. Patient appears well no signs of respiratory distress. No retractions or increased accessory muscles. Patient is afebrile appearing well and nontoxic. Patient denies any history of fevers. Chest x-ray negative for pneumonia or focal consolidation. Patient be discharged with azithromycin, prednisone and inhaler. Patient is to follow-up with primary care provider in next 1-2 days. Patient is agreeable plan discharge. Patient provided work note. Patient denies questions at this time. Patient discharged appearing well. Return parameters were discussed at length the patient who verbalized understanding. Patient is aware of the e- scribed prescriptions. I discussed the case with attending provider Dr. Caceres. Disposition Clinical Impression: Upper respiratory infection Disposition: HOME SELF-CARE Condition: Good Instructions (If sedation given, give patient instructions): Upper Respiratory Infection (ED) Additional Instructions: Please use medication as discussed. Please follow-up with family doctor in the next 2 days of symptoms have not improved. Please return to emergency room if the symptoms increase or worsen or for any other concerns. Prescriptions: Albuterol Inhaler [Ventolin Hfa Inhaler] 1 - 2 puff INHALATION RT-Q6H PRN 7 Days #1 inhaler PRN Reason: Wheezing Azithromycin [Zithromax Z-pack] 0 mg PO DIRECTED #6 tab predniSONE 20 mg PO DAILY 5 Days #5 tab Is patient prescribed a controlled substance at d/c from ED?: No Referrals: Sigifredo Wilde MD [Primary Care Provider] - 1-2 days Time of Disposition: 19:47
[2018-08-29 19:25] VITALS: PULSE 65
== END 2018-08-29 20:00 | disposition home or self-care (01) ==
LOC: EC 16:18
DX: J06.9 Acute upper respiratory infection, unspecified (principal); M54.2 Cervicalgia; G89.29 Other chronic pain; Z87.891 Personal history of nicotine dependence; Z88.0 Allergy status to penicillin; Z79.82 Long term (current) use of aspirin
CPT/HCPCS: 94640 ×2; 71046; 99283; 96372; J2930

== ENCOUNTER 2018-10-10 12:33 | Emergency (ER) | payer OTHER ==
[2018-10-10] MEDS ORDERED: methylPREDNISolone SOD SUCCI 125 MG/2 ML VIAL IM ONE (12:46)
[2018-10-10] MEDS ORDERED: IPRATROPIUM-ALBUTEROL 3 ML NEB INHALATION STA ×2 (12:46→13:38)
--- NOTE | 2018-10-10 13:53 | XR ---
EXAMINATION TYPE: XR chest 2V DATE OF EXAM: 10/10/2018 COMPARISON: 08/29/2018 TECHNIQUE: PA and lateral views submitted. HISTORY: Cough FINDINGS: The lungs are clear and there is no pneumothorax, pleural effusion, or focal pneumonia. Apical pleu ral-based nodularity is stable. Previous surgery involving the right shoulder. Hyperinflation correla te for COPD. Hypertrophic change of the spine. No overt failure. IMPRESSION: 1. COPD with no definite acute infiltrate. There is a right apical pleural-based nodule measuring 9.6 mm. This was not present on the x-ray of 09/10/2014. CT scan of the chest recommended.
[2018-10-10 13:59] LABS: Basophils # (A) 0.1 k/uL (0-0.2); Basophils % (A) 1 %; Eosinophils # (A) 0.3 k/uL (0-0.7); Eosinophils % (A) 3 %; HCT 53.4 % (39.0-53.0); HGB 17.9 gm/dL (13.0-17.5); Lymphocytes # (A) 1.5 k/uL (1.0-4.8); Lymphocytes % (A) 17 %; MCH 30.1 pg (25.0-35.0); MCHC 33.5 g/dL (31.0-37.0); MCV 89.8 fL (80.0-100.0); Mean Platelet Volume 6.8; Monocytes # (A) 0.7 k/uL (0-1.0); Monocytes % (A) 8 %; Neutrophils # (A) 6.1 k/uL (1.3-7.7); Neutrophils % (A) 69 %; Platelet Count 239 k/uL (150-450); RBC 5.94 m/uL (4.30-5.90); RDW 13.1 % (11.5-15.5); WBC 8.8 k/uL (3.8-10.6)
[2018-10-10] MEDS ORDERED: SODIUM CHLORIDE 0.9% 1,000 ML IV ONE (14:06)
--- NOTE | 2018-10-10 14:06 | ED ---
General Adult HPI - General Chief complaint: Upper Respiratory Infection Stated complaint: FLU LIKE SYMPTOMS Time Seen by Provider: 10/10/18 12:46 Source: patient Mode of arrival: ambulatory Limitations: no limitations - History of Present Illness Initial comments: 48-year-old male presenting for cough congestion and body aches. Patient states that for the past 2-3 days he has had a cough congestion and production and body aches. Patient thought he may have the flu. Patient denies fever, nightsweats, sore throat, difficulty breathing or swallowing. He states he has baseline shortness of breath with mild increase when coughing. pt denies chest pain, or extremity swelling, recent travel, history of cancer, history of blood clot or DVT, nausea, vomiting, indigestion, back pain, abdominal pain, hemoptysis. Upon arrival pt appears well, nontoxic. No acute distress. VS reveal elevated BP remaining within acceptable limits. - Related Data Home Medications Medication Instructions Recorded Confirmed D-Methorphan/PE/Acetaminophen 2 tab PO Q4H PRN 10/10/18 10/10/18 [Tylenol Cold Max Day Caplet] DULoxetine HCL [Cymbalta] 30 mg PO DAILY 10/10/18 10/10/18 Previous Rx's Medication Instructions Recorded Albuterol Inhaler [Ventolin Hfa 1 - 2 puff INHALATION RT-Q6H PRN 10/10/18 Inhaler] 10 Days #1 inhaler Azithromycin [Zithromax Tri-Saravanan] 500 mg PO DAILY 3 Days #3 tab 10/10/18 predniSONE 20 mg PO BID 4 Days #8 tab 10/10/18 Allergies Allergy/AdvReac Type Severity Reaction Status Date / Time amoxicillin AdvReac Nausea & Verified 10/10/18 13:29 Vomiting Review of Systems ROS Statement: Those systems with pertinent positive or pertinent negative responses have been documented in the HPI. ROS Other: All systems not noted in ROS Statement are negative. Past Medical History Past Medical History: No Reported History Additional Past Medical History / Comment(s): shingles tendonitis and carpel tunnel chronic neck pain History of Any Multi-Drug Resistant Organisms: None Reported Past Surgical History: Orthopedic Surgery Additional Past Surgical History / Comment(s): rt shoulder , left knee sx Past Psychological History: No Psychological Hx Reported Smoking Status: Current every day smoker Past Alcohol Use History: None Reported Past Drug Use History: Marijuana General Exam - General Exam Comments Initial Comments: General: The patient is awake and alert, in no distress, and does not appear acutely ill. Eye: +3 mm pupils are equal, round and reactive to light, extra-ocular movements are intact. No nystagmus. There is normal conjunctiva bilaterally. No signs of icterus. No photophobia Ears, nose, mouth and throat: There are moist mucous membranes and no oral lesions. Oropharynx was not erythematous there is no tonsillar enlargement exudates or lesions. Uvula midline. Tympanic membranes are not erythematous or is no effusions bulging or retraction. No tenderness to palpation of the mastoid. No anterior cervical lymphadenopathy. Rhinorrhea, clear and bilateral nares. No tripoding, no drooling. Neck: The neck is supple, there is no tenderness or JVD. No nuchal rigidity negative Brudzinski and Kernig Cardiovascular: There is a regular rate and rhythm. No murmur, rub or gallop is appreciated. Respiratory: Respirations are non-labored, breath sounds are equal. No stridor, rales, or rhonchi. Audible expiratory wheeze. No retractions or abdominal breathing. Gastrointestinal: Soft, non-distended, non-tender abdomen without masses or organomegaly noted. There is no rebound or guarding present. Bowel sounds are unremarkable. Musculoskeletal: Normal ROM, no tenderness. Strength 5/5. Sensation intact. Radial pulses equal bilaterally 2+. Neurological: A&O x 3. CN II-XII intact, There are no obvious motor or sensory deficits. Coordination appears grossly intact. Speech appears normal, no mufflin g. Skin: Skin is warm and dry and no rashes or lesions are noted. No extremity edema Psychiatric: Cooperative Limitations: no limitations Course Vital Signs 10/10/18 10/10/18 10/10/18 12:43 13:16 13:26 Temperature 98 F Pulse Rate 100 72 72 Respiratory 18 Rate Blood Pressure 149/97 O2 Sat by Pulse 96 Oximetry 10/10/18 10/10/18 13:53 14:04 Temperature Pulse Rate 92 88 Respiratory Rate Blood Pressure O2 Sat by Pulse Oximetry Medical Decision Making - Medical Decision Making Appearing 48-year-old male presenting for cough congestion and body aches. Everyday smoker Influenza test negative. Chest x-ray revealed no focal consolidation however there was noted 9 mm nodule. I discussed at length the differential diagnosis for lung nodule including the concern for malignancy. Patient verbalized understanding as well as understanding of the importance of follow-up. Pt states he will call this evening. Patient had 2 DuoNeb treatments significant improvement of extremities. Patient denies shortness of breath. Laboratory studies and acceptable limits. No leukocytosis. At this time I feel patient has a viral upper respiratory infection, with underlying COPD. Patient provided inhaler, steroids as well as azithromycin outpatient for treatment. P atient is to follow-up with primary care provider as discussed. Return parameters were discussed at length the patient who verbalizes understanding. Patient is agreeable with discharge stating he is ready to go home. Discussed case with Dr. Danielson who is agreeable with discharge and plan of care. - Lab Data Result diagrams: 10/10/18 13:52 10/10/18 13:52 Lab Results 10/10/18 10/10/18 10/10/18 Range/Units 13:00 13:52 13:52 WBC 8.8 (3.8-10.6) k/uL RBC 5.94 H (4.30-5.90) m/uL Hgb 17.9 H (13.0-17.5) gm/dL Hct 53.4 H (39.0-53.0) % MCV 89.8 (80.0-100.0) fL MCH 30.1 (25.0-35.0) pg MCHC 33.5 (31.0-37.0) g/dL RDW 13.1 (11.5-15.5) % Plt Count 239 (150-450) k/uL Neutrophils % 69 % Lymphocytes % 17 % Monocytes % 8 % Eosinophils % 3 % Basophils % 1 % Neutrophils # 6.1 (1.3-7.7) k/uL Lymphocytes # 1.5 (1.0-4.8) k/uL Monocytes # 0.7 (0-1.0) k/uL Eosinophils # 0.3 (0-0.7) k/uL Basophils # 0.1 (0-0.2) k/uL Sodium 137 (137-145) mmol/L Potassium 4.7 (3.5-5.1) mmol/L Chloride 107 (98-107) mmol/L Carbon Dioxide 24 (22-30) mmol/L Anion Gap 6 mmol/L BUN 13 (9-20) mg/dL Creatinine 0.70 (0.66-1.25) mg/dL Est GFR (CKD-EPI)AfAm >90 (>60 ml/min/1.73 sqM) Est GFR (CKD-EPI)NonAf >90 (>60 ml/min/1.73 sqM) Glucose 99 (74-99) mg/dL Calcium 9.5 (8.4-10.2) mg/dL Total Bilirubin 0.9 (0.2-1.3) mg/dL AST 35 (17-59) U/L ALT 46 (21-72) U/L Alkaline Phosphatase 75 (38-126) U/L Troponin I (0.000-0.034) ng/mL Total Protein 7.4 (6.3-8.2) g/dL Albumin 4.4 (3.5-5.0) g/dL Influenza Type A RNA Not Detected (Not Detectd) Influenza Type B (PCR) Not Detected (Not Detectd) 10/10/18 Range/Units 13:52 WBC (3.8-10.6) k/uL RBC (4.30-5.90) m/uL Hgb (13.0-17.5) gm/dL Hct (39.0-53.0) % MCV (80.0-100.0) fL MCH (25.0-35.0) pg MCHC (31.0-37.0) g/dL RDW (11.5-15.5) % Plt Count (150-450) k/uL Neutrophils % % Lymphocytes % % Monocytes % % Eosinophils % % Basophils % % Neutrophils # (1.3-7.7) k/uL Lymphocytes # (1.0-4.8) k/uL Monocytes # (0-1.0) k/uL Eosinophils # (0-0.7) k/uL Basophils # (0-0.2) k/uL Sodium (137-145) mmol/L Potassium (3.5-5.1) mmol/L Chloride (98-107) mmol/L Carbon Dioxide (22-30) mmol/L Anion Gap mmol/L BUN (9-20) mg/dL Creatinine (0.66-1.25) mg/dL Est GFR (CKD-EPI)AfAm (>60 ml/min/1.73 sqM) Est GFR (CKD-EPI)NonAf (>60 ml/min/1.73 sqM) Glucose (74-99) mg/dL Calcium (8.4-10.2) mg/dL Total Bilirubin (0.2-1.3) mg/dL AST (17-59) U/L ALT (21-72) U/L Alkaline Phosphatase (38-126) U/L Troponin I <0.012 (0.000-0.034) ng/mL Total Protein (6.3-8.2) g/dL Albumin (3.5-5.0) g/dL Influenza Type A RNA (Not Detectd) Influenza Type B (PCR) (Not Detectd) Disposition Clinical Impression: Lung nodule, Upper respiratory infection Disposition: HOME SELF-CARE Condition: Good Instructions (If sedation given, give patient instructions): Upper Respiratory Infection (ED), Pulmonary Nodules (ED) Additional Instructions: Please use medication as discussed. Please follow-up with family doctor in the next 2 days, I recommend outpatient CT for the pulmonary nodule that was discussed. Please return to emergency room if the symptoms increase or worsen or for any other concerns. Prescriptions: predniSONE 20 mg PO BID 4 Days #8 tab Albuterol Inhaler [Ventolin Hfa Inhaler] 1 - 2 puff INHALATION RT-Q6H PRN 10 Days #1 inhaler PRN Reason: Wheezing Is patient prescribed a controlled substance at d/c from ED?: No Referrals: Sigifredo Wilde MD [Primary Care Provider] - 1-2 days Time of Disposition: 14:16
[2018-10-10 14:15] LABS: ALT 46 U/L (21-72); AST 35 U/L (17-59); Albumin 4.4 g/dL (3.5-5.0); Alkaline Phosphatase 75 U/L (38-126); Anion Gap 6 mmol/L; Blood Urea Nitrogen 13 mg/dL (9-20); Calcium 9.5 mg/dL (8.4-10.2); Carbon Dioxide 24 mmol/L (22-30); Chloride 107 mmol/L (98-107); Glucose 99 mg/dL (74-99); Potassium 4.7 mmol/L (3.5-5.1); Sodium 137 mmol/L (137-145); Total Bilirubin 0.9 mg/dL (0.2-1.3); Total Protein 7.4 g/dL (6.3-8.2)
[2018-10-10 15:04] VITALS: BP 132/67; PULSE 92; RESP 19; TEMP 98
== END 2018-10-10 15:04 | disposition home or self-care (01) ==
LOC: EC 12:33
DX: J06.9 Acute upper respiratory infection, unspecified (principal); R91.1 Solitary pulmonary nodule; F17.200 Nicotine dependence, unspecified, uncomplicated; Z79.899 Other long term (current) drug therapy; Z88.0 Allergy status to penicillin; Z53.8 Procedure and treatment not carried out for other reasons
CPT/HCPCS: 36415; 94640 ×2; 80053; 84484; 85025; 87502; 71046; 99285; 96372; J2930

== ENCOUNTER 2018-12-15 20:45 | Emergency (ER) | payer OTHER ==
[2018-12-15 20:58] VITALS: RESP 18
[2018-12-15] MEDS ORDERED: ACETAMINOPHEN TAB 500 MG TAB PO STA (21:21)
--- NOTE | 2018-12-15 21:54 | XR ---
EXAMINATION TYPE: XR knee complete LT DATE OF EXAM: 12/15/2018 COMPARISON: NONE HISTORY: Knee pain TECHNIQUE: 3 views FINDINGS: There is knee joint effusion. I see no fracture nor dislocation. Joint spaces are fairly no rmal. IMPRESSION: Knee joint effusion. No fracture. No change.
--- NOTE | 2018-12-15 22:53 | US ---
EXAM: US Duplex Left Lower Extremity Veins CLINICAL HISTORY: ITS.REASON US Reason: Pain TECHNIQUE: Real-time duplex ultrasound scan of the left lower extremity veins integrating B-mode two-dimensional vascular structure, Doppler spectral analysis, color flow Doppler imaging and compression. COMPARISON: None FINDINGS: Deep veins: Unremarkable. No DVT in the visualized common femoral, femoral, proximal deep femoral or popliteal veins. The veins demonstrate normal color flow, are normally compressible, with normal phasic flow and/or augmentation response. Superficial veins: Unremarkable. No thrombus in the visualized great saphenous vein. Soft tissues: No acute findings. No popliteal cyst. IMPRESSION: No deep venous thrombosis identified in the left lower extremity.
--- NOTE | 2018-12-15 23:15 | ED ---
General Adult HPI - General Source: patient Mode of arrival: ambulatory Limitations: no limitations <Edouard Mustafa - Last Filed: 12/15/18 23:34> <Daniella Lorenzo P - Last Filed: 12/16/18 02:48> - General Chief complaint: Extremity Injury, Lower Stated complaint: Lt Knee Pain Time Seen by Provider: 12/15/18 21:07 - History of Present Illness Initial comments: Patient is a 48-year-old male presents emergency Department with left knee pain. Patient reports the pain started. His ago and has slowly increased in severity. Patient states the pain is dull and radiates along the anterior aspect of the lower leg to the ankle. Patient states he also developed edema in the left ankle. Patient reports the pain is exacerbated with ambulation but alleviated with rest. Patient denies erythema, or skin discoloration. Patient reports the patellar tendon repair in the same region of swelling. Patient denies taking any medication to alleviate the pain. (Edouard Mustafa) - Related Data Home Medications Medication Instructions Recorded Confirmed D-Methorphan/PE/Acetaminophen 2 tab PO Q4H PRN 10/10/18 10/10/18 [Tylenol Cold Max Day Caplet] DULoxetine HCL [Cymbalta] 30 mg PO DAILY 10/10/18 10/10/18 Previous Rx's Medication Instructions Recorded Albuterol Inhaler [Ventolin Hfa 1 - 2 puff INHALATION RT-Q6H PRN 10/10/18 Inhaler] 10 Days #1 inhaler Azithromycin [Zithromax Tri-Saravanan] 500 mg PO DAILY 3 Days #3 tab 10/10/18 predniSONE 20 mg PO BID 4 Days #8 tab 10/10/18 Allergies Allergy/AdvReac Type Severity Reaction Status Date / Time amoxicillin AdvReac Nausea & Verified 12/15/18 20:58 Vomiting Review of Systems ROS Other: All systems not noted in ROS Statement are negative. <Edouard Mustafa - Last Filed: 12/15/18 23:34> ROS Other: All systems not noted in ROS Statement are negative. <Daniella Lorenzo P - Last Filed: 12/16/18 02:48> ROS Statement: Those systems with pertinent positive or pertinent negative responses have been documented in the HPI. Past Medical History Past Medical History: No Reported History Additional Past Medical History / Comment(s): shingles tendonitis and carpel tunnel chronic neck pain CIDP History of Any Multi-Drug Resistant Organisms: None Reported Past Surgical History: Orthopedic Surgery Additional Past Surgical History / Comment(s): rt shoulder , left knee sx Past Psychological History: No Psychological Hx Reported Smoking Status: Current every day smoker Past Alcohol Use History: None Reported Past Drug Use History: Marijuana <Edouard Mustafa - Last Filed: 12/15/18 23:34> General Exam Limitations: no limitations General appearance: alert, in no apparent distress Head exam: Present: atraumatic, normocephalic, normal inspection Eye exam: Present: normal appearance, PERRL, EOMI Pupils: Present: normal accommodation ENT exam: Present: normal exam, mucous membranes moist, TM's normal bilaterally Neck exam: Present: normal inspection Respiratory exam: Present: normal lung sounds bilaterally. Absent: respiratory distress, wheezes Cardiovascular Exam: Present: regular rate, normal rhythm, normal heart sounds Left Hip exam: Present: normal inspection, full ROM Upper Leg exam: Present: normal inspection, full ROM Knee exam: Present: tenderness (Mild to moderate with palpation), swelling. Absent: full ROM (Limited due to pain), abrasion, laceration, ecchymosis, deformity, crepitus, dislocation, posterior draw sign Lower Leg exam: Present: normal inspection, full ROM, Homans' sign Ankle exam: Present: normal inspection, full ROM Foot/Toe exam: Present: normal inspection, full ROM Neurovascular tendon exam: Present: no vascular compromise (+2 dorsalis pedis and posterior tibialis) Gait: observed and limited by pain Back exam: Present: normal inspection, full ROM Neurological exam: Present: alert, oriented X3 Psychiatric exam: Present: normal affect, normal mood Skin exam: Present: warm, intact, normal color <Edouard Mustafa - Last Filed: 12/15/18 23:34> Course Vital Signs 12/15/18 12/15/18 20:54 23:20 Temperature 98.1 F 98.7 F Pulse Rate 84 89 Respiratory 18 18 Rate Blood Pressure 119/73 120/81 O2 Sat by Pulse 95 98 Oximetry Medical Decision Making <Edouard Mustafa - Last Filed: 12/15/18 23:34> <Daniella Lorenzo - Last Filed: 12/16/18 02:48> - Medical Decision Making Patient is a 48-year-old male presents emergency Department with left knee swelling. Doppler ultrasound was negative for DVT. X-ray of the knee is suggestive of effusion with no acute fracture or dislocation. Patient advised to monitor for signs of infection. Patient advised to follow with orthopedics. Patient was to return to emergency department is as worsen. Case discussed with physician. (Edouard Mustafa) I was available for consultation in the emergency department. The history and physical exam were done by the midlevel provider. [facility] I reviewed the case with the midlevel provider and based on their presentation of the patient, I agree with the assessment, medical decision making and plan of care as documented. Chart was dictated using [employer] dictation software. Attempts were made to correct any dictation errors however some typographical errors may persist. (Daniella Lorenzo) Disposition Is patient prescribed a controlled substance at d/c from ED?: No Time of Disposition: 23:15 <Edouard Mustafa - Last Filed: 12/15/18 23:34> <Daniella Lorenzo - Last Filed: 12/16/18 02:48> Clinical Impression: Knee pain Disposition: HOME SELF-CARE Condition: Stable Instructions (If sedation given, give patient instructions): Knee Pain (ED) Additional Instructions: Please follow-up with orthopedics. Please use ice packs to minimize symptoms. Alternate between Tylenol and ibuprofen for pain control. Please return to emergency department if symptoms worsen. Referrals: Sigifredo Wilde MD [Primary Care Provider] - 1-2 days Tony Manning DO [Doctor of Osteopathic Medicine] - 1-2 days
[2018-12-15 23:27] VITALS: BP 120/81; PULSE 89; TEMP 98.7
== END 2018-12-15 23:22 | disposition home or self-care (01) ==
LOC: EC 20:45
DX: M25.562 Pain in left knee (principal); R60.0 Localized edema; F17.200 Nicotine dependence, unspecified, uncomplicated; Z79.899 Other long term (current) drug therapy; Z88.0 Allergy status to penicillin
CPT/HCPCS: 99284

== ENCOUNTER 2019-10-31 22:40 | Emergency (ER) | payer OTHER ==
[2019-10-31 22:46] VITALS: RESP 18; TEMP 98.2
--- NOTE | 2019-10-31 23:10 | ED ---
Male Urogenital HPI - General Chief complaint: Urogenital Stated complaint: Lump near groin area Time Seen by Provider: 10/31/19 22:50 Source: patient, RN notes reviewed, old records reviewed Mode of arrival: ambulatory Limitations: no limitations - History of Present Illness Initial comments: Patient is 49-year-old male who presents the emergency department today with chief complaint of a lump in his left groin for the past 2 weeks. He reports it's been increasingly painful over the past day. He states that he noticed this groin lump occur after moving some a washer and dryer few weeks ago. Denies any fevers or chills, denies any nausea or vomiting. He states is able to urinate and have normal bowel movements. - Related Data Home Medications Medication Instructions Recorded Confirmed DULoxetine HCL [Cymbalta] 90 mg PO DAILY 10/10/18 10/31/19 Previous Rx's Medication Instructions Recorded Albuterol Inhaler (Bulk) [Ventolin 1 - 2 puff INHALATION RT-Q6H PRN 10/10/18 Hfa Inhaler (Bulk)] 10 Days #1 inhaler Allergies Allergy/AdvReac Type Severity Reaction Status Date / Time amoxicillin AdvReac Nausea & Verified 10/31/19 22:46 Vomiting Review of Systems ROS Statement: Those systems with pertinent positive or pertinent negative responses have been documented in the HPI. ROS Other: All systems not noted in ROS Statement are negative. Past Medical History Past Medical History: No Reported History Additional Past Medical History / Comment(s): shingles tendonitis and carpel tunnel chronic neck pain CIDP History of Any Multi-Drug Resistant Organisms: None Reported Past Surgical History: Orthopedic Surgery Additional Past Surgical History / Comment(s): rt shoulder , left knee sx Past Psychological History: No Psychological Hx Reported Smoking Status: Current every day smoker Past Alcohol Use History: None Reported Past Drug Use History: Marijuana General Exam - General Exam Comments Initial Comments: 49 year old male, no distress. Limitations: no limitations General appearance: alert, in no apparent distress Head exam: Present: atraumatic Eye exam: Present: normal appearance, PERRL, EOMI. Absent: scleral icterus, conjunctival injection, periorbital swelling ENT exam: Present: normal exam, mucous membranes moist Neck exam: Present: normal inspection. Absent: tenderness, meningismus, lymphadenopathy Respiratory exam: Present: normal lung sounds bilaterally. Absent: respiratory distress, wheezes, rales, rhonchi, stridor Cardiovascular Exam: Present: regular rate, normal rhythm, normal heart sounds. Absent: systolic murmur, diastolic murmur, rubs, gallop, clicks GI/Abdominal exam: Present: soft, tenderness ( L inguinal swelling, redicible mass. No skin changes. ), normal bowel sounds. Absent: distended, guarding, rebound, rigid Extremities exam: Present: normal inspection, full ROM, normal capillary refill. Absent: tenderness, pedal edema, joint swelling, calf tenderness Back exam: Present: normal inspection Neurological exam: Present: alert, oriented X3, CN II-XII intact Psychiatric exam: Present: normal affect, normal mood Skin exam: Present: warm, dry, intact, normal color. Absent: rash Course Vital Signs 10/31/19 11/01/19 22:41 00:22 Temperature 98.2 F Pulse Rate 95 88 Respiratory 18 18 Rate Blood Pressure 149/80 114/72 O2 Sat by Pulse 98 96 Oximetry Medical Decision Making - Medical Decision Making 49-year-old male presents with 2 weeks of left groin pain. Worse with palpation and certain movements. On exam Patient has evidence of a hernia. This is reducible. Patient's urinalysis is negative for infection. Patient informed to follow-up with surgeon. With the sign of incarceration at this time requiring no more emergent surgery. He discussed with her signs of redness or if the hernia becomes irreducible. Patient understands return parameters and discussed using abdominal support and no further heavy lifting. Patient is agreeable treatment plan will comply. - Lab Data Lab Results 10/31/19 Range/Units 23:00 Urine Color Yellow Urine Appearance Clear (Clear) Urine pH 5.5 (5.0-8.0) Ur Specific [place] 1.013 (1.001-1.035) Urine Protein Negative (Negative) Urine Glucose (UA) Negative (Negative) Urine Ketones Negative (Negative) Urine Blood Negative (Negative) Urine Nitrite Negative (Negative) Urine Bilirubin Negative (Negative) Urine Urobilinogen <2.0 (<2.0) mg/dL Ur Leukocyte Esterase Negative (Negative) - Radiology Data Radiology results: report reviewed Suspect hernia patient's site of left groin pain. Area measures proximal 23.1 cm in width. Disposition Clinical Impression: Left groin hernia Disposition: HOME SELF-CARE Condition: Good Instructions (If sedation given, give patient instructions): Inguinal Hernia (E D) Additional Instructions: Patient advised to follow-up with Gen. surgery. Patient to take anti- inflammatory medicine. He continues scrotal support to help with strain and even use a trus belt. No heavy lifting. Return if there is vomiting, skin changes or hernia becomes non reducible. Is patient prescribed a controlled substance at d/c from ED?: No Referrals: Sigifredo Wilde MD [Primary Care Provider] - 1-2 days Lowell Recio MD [STAFF PHYSICIAN] - 1-2 days Time of Disposition: 23:54
[2019-10-31 23:48] LABS: Appearance,Urine Clear (Clear); Bilirubin,Urine Negative (Negative); Blood,Urine Negative (Negative); Color,Urine Yellow; Glucose,Urine (UA) Negative (Negative); Ketones,Urine Negative (Negative); Leukocyte Esterase,Urine Negative (Negative); Nitrite,Urine Negative (Negative); PH, Urine 5.5 (5.0-8.0); Protein,Urine Negative (Negative); Specific Gravity,Urine 1.013 (1.001-1.035); Urobilinogen,Urine <2.0 mg/dL (<2.0)
--- NOTE | 2019-10-31 23:51 | US ---
EXAMINATION TYPE: US groin LT DATE OF EXAM: 10/31/2019 COMPARISON: NONE CLINICAL HISTORY: hernia. Patient has felt a lump in the left groin x 2 weeks. Pain x 1 day in this a amelia. At the patient's palpable, painful area in the left groin, there appears to be an indistinct area whe re anterior movement is seen during valsalva maneuver. This area has the appearance of bowel moving a nteriorly. The area approximately measures 3.1 cm in width. Scanned right groin for comparison. No abnormalities seen at this time. IMPRESSION: Suspect hernia at the patient's site of clinical concern left groin.
[2019-11-01 00:23] VITALS: BP 114/72; PULSE 88
== END 2019-11-01 00:16 | disposition home or self-care (01) ==
LOC: EC 22:40
DX: K40.30 Unilateral inguinal hernia, with obstruction, without gangrene, not specified as recurrent (principal); G61.81 Chronic inflammatory demyelinating polyneuritis; F17.200 Nicotine dependence, unspecified, uncomplicated; Z79.899 Other long term (current) drug therapy; Z88.0 Allergy status to penicillin
CPT/HCPCS: 81003; 99284

== ENCOUNTER → 2019-12-01 | Outpatient (CLI) | payer OTHER | END | disposition home or self-care (01) | LOC: LABWHC1 08:20 | PROVIDERS: ATTEND Surgery | DX: Z11.59 Encounter for screening for other viral diseases (principal) | CPT/HCPCS: 87635 ==

== ENCOUNTER 2019-12-06 06:05 | Day surgery (SDC) | payer OTHER ==
[2019-12-01 11:44] VITALS: BMI 27.4
[~2019-12-06 06:05] MED LIST: ACETAMINOPHEN TAB 500 MG TAB PO ONE; HEPARIN SODIUM,PORCINE 5,000 UNIT/ML 1 ML VIAL SQ ONE
[2019-12-06] MEDS ORDERED: fentaNYL (PF) 50 MCG/ML 2 ML AMP IV PRN (06:13)
[2019-12-06] MEDS ORDERED: LIDOCAINE 1% (10MG/ML) FOR IV START INTRADERMA PRN (06:13)
[2019-12-06] MEDS ORDERED: LACTATED RINGERS 1,000 ML IV SCH (06:13)
[2019-12-06] MEDS ORDERED: ONDANSETRON 4 MG/2 ML VIAL IVP ONE (06:13)
[2019-12-06 06:25] VITALS: RESP 16
[2019-12-06] MEDS ORDERED: DEXAMETHASONE SOD PHOSPHATE 10 MG/ML 1 ML VIAL IV ONE (06:45)
[2019-12-06 07:22] LABS: HCT 42.7 % (39.0-53.0); HGB 14.3 gm/dL (13.0-17.5); MCH 30.7 pg (25.0-35.0); MCHC 33.6 g/dL (31.0-37.0); MCV 91.6 fL (80.0-100.0); Mean Platelet Volume 7.9; Platelet Count 255 k/uL (150-450); RBC 4.66 m/uL (4.30-5.90); RDW 12.6 % (11.5-15.5); WBC 7.9 k/uL (3.8-10.6)
[2019-12-06] MEDS ORDERED: LIDOCAINE 1% INJ 10MG/ML (20 ML MDV) ONE (07:47)
[2019-12-06] MEDS ORDERED: NEOSTIGMINE 1 MG/ML 10 ML VIAL ONE (07:47)
[2019-12-06] MEDS ORDERED: ROCURONIUM BROMIDE 10 MG/ML 5 ML VIAL IV ONE (07:47)
[2019-12-06] MEDS ORDERED: SUCCINYLCHOLINE CHLORIDE 100 MG/5 ML SYR IV ONE (07:47)
[2019-12-06] MEDS ORDERED: GLYCOPYRROLATE 0.2 MG/ML 2 ML VIAL ONE (07:47)
[2019-12-06] MEDS ORDERED: MIDAZOLAM 2 MG/2 ML VIAL ONE (07:47)
[2019-12-06] MEDS ORDERED: KETOROLAC 30 MG/ML 1 ML VIAL ONE (07:47)
[2019-12-06] MEDS ORDERED: PROPOFOL 10 MG/ML 20 ML VIAL IV ONE (07:47)
[2019-12-06] MEDS ORDERED: fentaNYL (PF) 50 MCG/ML 2 ML AMP ONE (07:47)
[2019-12-06] MEDS ORDERED: BUPIVACAIN-EPI 0.25%-1:200,000 30 ML VIAL SQ ONE (08:10)
[2019-12-06] MEDS: HYDROmorphone 0.5 MG/0.5 ML SYRINGE IVP PRN ×3 (08:39→08:55)
--- NOTE | 2019-12-06 08:39 | P.OP ---
Date of Procedure: 12/06/19 Preoperative Diagnosis: Left inguinal hernia Postoperative Diagnosis: Left inguinal hernia Procedure(s) Performed: Laparoscopic robotic-assisted repair of left inguinal hernia Anesthesia: ANDREEA Surgeon: Lowell Recio Estimated Blood Loss (ml): 5 Pathology: none sent Condition: stable Disposition: PACU Description of Procedure: The patient's placed on the operating table in the supine position. The patient received general anesthesia. The patient's abdomen was prepped and draped in usual sterile fashion. The skin was anesthetized 1% local Xylocaine at the incision sites. Using an 11 blade a skin incision was made at the umbilicus. The fascia was grasped with a Nicolasa and then the peritoneal cavity was entered with the Veress needle. Position of the Veress needle was confirmed with a positive drop test. After adequate insufflation a 5 mm trocar was placed into the peritoneal cavity. The Laparoscope was placed the peritoneal cavity. And a robotic 8 mm trocar was placed in the right lateral position and then another 8 mm robotic trochars placed in the left lateral position. The original 5 mm trocar was exchanged for a 12 mm trocar. The patient was placed in reverse Trendelenburg and then the patient was docked to the robot. Next the peritoneum over top of the hernia was incised and then using blunt and sharp dissection and electrocautery the hernia sac was dissected free from the floor of the inguinal canal. The hernia sac was completely reduced into the peritoneal cavity. And then using the Pro shaft tender mesh the hernia was repaired. The peritoneum was then sutured with 20V lock suture. The patient was then undocked the robot. The needle was withdrawn from the peritoneal cavity. The umbilical trocar site was closed with 0 Ethibond suture. The skin was closed interrupted 3-0 Monocryl suture. Dermabond dressing was applied. Patient was sent to recovery in stable condition.
--- NOTE | 2019-12-06 08:40 | P.GSHP ---
History of Present Illness H&P Date: 12/06/19 Chief Complaint: Left inguinal hernia This a 49-year-old male who presents today for laparoscopic robotic repair of left inguinal hernia Past Medical History Past Medical History: No Reported History Additional Past Medical History / Comment(s): shingles-RELSOVED, tendonitis and carpel tunnel chronic neck pain, CIDP(CHRONIC INFLAMMATORY DEMYELINATING POLYNEUROPATHY), MIGRAINES, INGUINAL HERNIA, History of Any Multi-Drug Resistant Organisms: None Reported Past Surgical History: Orthopedic Surgery Additional Past Surgical History / Comment(s): rt shoulder SX , left knee sx Past Anesthesia/Blood Transfusion Reactions: No Reported Reaction Smoking Status: Current every day smoker - Past Family History Mother Family Medical History: No Reported History Medications and Allergies Home Medications Medication Instructions Recorded Confirmed Type Albuterol Inhaler (Mhu) [Ventolin 1 - 2 puff INHALATION RT-Q6H PRN 10/10/18 12/06/19 Rx Hfa Inhaler (Mhu)] 10 Days #1 inhaler DULoxetine HCL [Cymbalta] 90 mg PO DAILY 10/10/18 12/06/19 History Lacosamide [Vimpat] 50 mg PO BID 12/01/19 12/06/19 History Mycophenolate Mofetil [Cellcept] 250 mg PO BID 12/01/19 12/06/19 History Mycophenolate Mofetil [Cellcept] 500 mg PO BID 12/01/19 12/06/19 History Naproxen 500 mg PO BID PRN 12/01/19 12/06/19 History SUMAtriptan SUCCINATE [Imitrex] 100 mg PO DAILY PRN 12/01/19 12/06/19 History traMADol HCl [Ultram] 50 mg PO TID PRN 12/01/19 12/06/19 History Allergies Allergy/AdvReac Type Severity Reaction Status Date / Time amoxicillin AdvReac Nausea & Verified 12/06/19 06:25 Vomiting Surgical - Exam Vital Signs Temp Pulse Resp BP Pulse Ox 97.6 F 72 16 116/69 97 12/06/19 06:24 12/06/19 06:24 12/06/19 06:24 12/06/19 06:24 12/06/19 06:24 - General well developed, well nourished, no distress - Eyes PERRL - ENT normal pinna - Neck no masses - Respiratory normal expansion - Abdomen Abdomen: soft Hernia: inguinal (Left inguinal hernia) Results - Labs 12/06/19 07:00 Assessment and Plan Assessment: Left inguinal hernia. We'll perform laparoscopic robotic-assisted repair.
[2019-12-06 08:44] VITALS: TEMP 98
[2019-12-06] MEDS ORDERED: HYDROcodone/APAP 5-325MG 1 EACH TAB PO ONE (09:30)
[2019-12-06 09:46] VITALS: BP 130/84; PULSE 83
== END 2019-12-06 10:13 | disposition home or self-care (01) ==
LOC: OR 06:05
PROVIDERS: ATTEND Surgery
DX: K40.90 Unilateral inguinal hernia, without obstruction or gangrene, not specified as recurrent (principal); G43.909 Migraine, unspecified, not intractable, without status migrainosus; G61.81 Chronic inflammatory demyelinating polyneuritis; M54.2 Cervicalgia; G89.29 Other chronic pain; F17.200 Nicotine dependence, unspecified, uncomplicated; Z88.0 Allergy status to penicillin; Z79.1 Long term (current) use of non-steroidal anti-inflammatories (NSAID); Z79.899 Other long term (current) drug therapy
CPT/HCPCS: 49650; 93005; 85027; C1781; J2250; J1644; J1100; J2710; J0690; J2405; J2001; J3010; J1885; J0330; J2704; J1170

== ENCOUNTER → 2020-02-27 | Outpatient (CLI) | payer OTHER ==
[~2020-02-27] MED LIST changes: -ACETAMINOPHEN TAB 500 MG TAB PO ONE; -HEPARIN SODIUM,PORCINE 5,000 UNIT/ML 1 ML VIAL SQ ONE; +IODINE/POTASS IOD (LUGOLS) BOTTLE TOPICAL ONE
--- NOTE | 2020-02-28 08:05 | NM ---
EXAMINATION TYPE: NM DatScan Brain SPECT DATE OF EXAM: 02/27/2020 COMPARISON: NONE HISTORY: Tremors TECHNIQUE: 10 drops of Lugol's solution was administered 1 hour prior to injection as a thyroid bloc leisa agent. After the administration of 4.37 mCi I-123 Ioflupane DaTscan. Images obtained 3 hours p ost injection. SPECT images of the brain were acquired with axial and coronal reconstructions. FINDINGS: The axial SPECT images demonstrate normal background activity. Accounting for head tilt, t here appears to be slight asymmetrically blunted comma-shaped appearance of the left corpus striatum. IMPRESSION: Slightly blunted striatal activity on the left may indicate early changes of idiopathic P arkinson's disease or Parkinsonian syndrome.
== END | disposition home or self-care (01) ==
LOC: RADNMMAIN 11:01
PROVIDERS: ATTEND Psychiatry & Neurology Pain Medicine
DX: G25.0 Essential tremor (principal)
CPT/HCPCS: 78803; A9584

== ENCOUNTER 2020-04-14 02:12 | Emergency (ER) | payer OTHER ==
[2020-04-14] MEDS ORDERED: MORPHINE SULFATE 4 MG/ML SYRINGE IM STA (03:00)
--- NOTE | 2020-04-14 04:05 | XR ---
EXAMINATION TYPE: XR Hip RT and AP Pelvis DATE OF EXAM: 04/14/2020 COMPARISON: NONE HISTORY: Hip pain TECHNIQUE: 3 views FINDINGS: The pelvic ring is intact. Proximal right femur and hip joint appear intact. There is no si gn of hip dysplasia. Hip joint space is fairly normal. Sacroiliac joints are intact. IMPRESSION: Negative pelvis and right hip exam.
--- NOTE | 2020-04-14 05:04 | ED ---
General Adult HPI - General Chief complaint: Weakness Stated complaint: Hip and back pain Time Seen by Provider: 04/14/20 02:52 Source: patient, family Mode of arrival: wheelchair Limitations: no limitations - History of Present Illness Onset/Timin -: days(s) Location: back, right (Hip) Radiation: non-radiation Quality: aching Consistency: constant Improves with: none Worsens with: none Associated Symptoms: denies other symptoms - Related Data Home Medications Medication Instructions Recorded Confirmed DULoxetine HCL [Cymbalta] 90 mg PO DAILY 10/10/18 12/06/19 Lacosamide [Vimpat] 50 mg PO BID 12/01/19 12/06/19 Naproxen 500 mg PO BID PRN 12/01/19 12/06/19 SUMAtriptan SUCCINATE [Imitrex] 100 mg PO DAILY PRN 12/01/19 12/06/19 mycophenolate mofetiL [Cellcept] 250 mg PO BID 12/01/19 12/06/19 mycophenolate mofetiL [Cellcept] 500 mg PO BID 12/01/19 12/06/19 traMADol HCl [Ultram] 50 mg PO TID PRN 12/01/19 12/06/19 Previous Rx's Medication Instructions Recorded Albuterol Inhaler (Mhu) [Ventolin 1 - 2 puff INHALATION RT-Q6H PRN 10/10/18 Hfa Inhaler (Mhu)] 10 Days #1 inhaler Docusate [Colace] 100 mg PO BID #20 capsule 12/06/19 HYDROcodone/APAP 5-325MG [[place] 1 tab PO Q6HR PRN #10 tab 12/06/19 5-325] Allergies Allergy/AdvReac Type Severity Reaction Status Date / Time amoxicillin AdvReac Nausea & Verified 04/14/20 02:23 Vomiting Review of Systems ROS Statement: Those systems with pertinent positive or pertinent negative responses have been documented in the HPI. ROS Other: All systems not noted in ROS Statement are negative. Constitutional: Denies: fever, chills Respiratory: Denies: cough, dyspnea Cardiovascular: Denies: chest pain, palpitations, edema Gastrointestinal: Denies: abdominal pain, nausea, vomiting Genitourinary: Denies: dysuria, frequency, hematuria, discharge, testicular pain, testicular mass Musculoskeletal: Reports: as per HPI, back pain, arthralgia (Hip) Skin: Denies: rash Neurological: Denies: headache, weakness, numbness, paresthesias Past Medical History Past Medical History: No Reported History Additional Past Medical History / Comment(s): shingles tendonitis and carpel tunnel chronic neck pain CIDP History of Any Multi-Drug Resistant Organisms: None Reported Past Surgical History: Hernia Repair Additional Past Surgical History / Comment(s): rt shoulder , left knee sx Past Psychological History: No Psychological Hx Reported Smoking Status: Current every day smoker Past Alcohol Use History: None Reported Past Drug Use History: Marijuana General Exam Limitations: no limitations General appearance: alert, in no apparent distress Respiratory exam: Present: normal lung sounds bilaterally. Absent: respiratory distress, wheezes, rales, rhonchi, stridor Cardiovascular Exam: Present: regular rate, normal rhythm, normal heart sounds. Absent: systolic murmur, diastolic murmur, rubs, gallop GI/Abdominal exam: Present: soft. Absent: distended, tenderness, guarding, rebound, rigid, mass Extremities exam: Present: normal inspection, full ROM, tenderness (Right hip), normal capillary refill. Absent: pedal edema, calf tenderness Back exam: Present: normal inspection. Absent: CVA tenderness (R), CVA tenderness (L), paraspinal tenderness, vertebral tenderness Neurological exam: Present: alert. Absent: motor sensory deficit Skin exam: Present: warm, dry, intact, normal color. Absent: rash Course Vital Signs 04/14/20 04/14/20 04/14/20 02:19 04:16 05:00 Temperature 99 F 98.7 F Pulse Rate 100 86 Respiratory 16 18 Rate Blood Pressure 131/72 115/82 124/68 O2 Sat by Pulse 97 98 Oximetry Disposition Clinical Impression: Arthralgia of hip, right Disposition: HOME SELF-CARE Condition: Good Instructions (If sedation given, give patient instructions): Arthralgia (ED) Is patient prescribed a controlled substance at d/c from ED?: No Referrals: Sigifredo Wilde MD [Primary Care Provider] - 1-2 days
[2020-04-14 05:11] VITALS: BP 124/68; PULSE 86; RESP 18; TEMP 98.7
== END 2020-04-14 05:00 | disposition home or self-care (01) ==
LOC: EC 02:12
DX: M25.551 Pain in right hip (principal); M54.2 Cervicalgia; G89.29 Other chronic pain; F17.200 Nicotine dependence, unspecified, uncomplicated; Z79.899 Other long term (current) drug therapy; Z88.0 Allergy status to penicillin
CPT/HCPCS: 73502; 99285; 96372; J2270

== ENCOUNTER → 2020-05-09 | Outpatient (CLI) | payer OTHER ==
--- NOTE | 2020-05-09 11:50 | FL ---
EXAMINATION TYPE: FL barium swallow DATE OF EXAM: 05/09/2020 CLINICAL HISTORY: Cervical dysphagia. Intermittent heartburn. Coughing worse in the mornings. TECHNIQUE: A double contrast esophagram is performed utilizing air and barium. A total of 2.29 yohana jennifer of fluoroscopic time was utilized during procedure.. Total images obtained 27 COMPARISON: None FINDINGS: The esophagus shows normal motility and emptying into the stomach. No mucosal abnormality. No evidence of hiatal hernia or stricture noted. Severe spontaneous gastroesophageal reflux was seen during real time performance of this study. IMPRESSION: 1. Severe spontaneous gastroesophageal reflux. 2. No hiatal hernia.
== END | disposition home or self-care (01) ==
LOC: RADUSWWP 09:54
PROVIDERS: ATTEND Family Medicine
DX: K21.9 Gastro-esophageal reflux disease without esophagitis (principal); R13.10 Dysphagia, unspecified; R42 Dizziness and giddiness
CPT/HCPCS: 74220

== ENCOUNTER 2020-07-19 01:42 | Emergency (ER) | payer OTHER ==
[2020-07-19 01:55] VITALS: BP 137/95; PULSE 80; RESP 20; TEMP 98.1
[2020-07-19] MEDS ORDERED: KETOROLAC 15 MG/ML 1 ML VIAL IM STA (02:12)
[2020-07-19] MEDS ORDERED: CYCLOBENZAPRINE 10 MG TAB PO STA (02:12)
[2020-07-19] MEDS ORDERED: MORPHINE SULFATE 4 MG/ML SYRINGE IM STA (02:12)
--- NOTE | 2020-07-19 02:14 | ED ---
Headache HPI - General Chief Complaint: Headache Stated Complaint: Headache Time Seen by Provider: 07/19/20 02:02 Mode of arrival: wheelchair Limitations: no limitations - History of Present Illness Initial Comments: 50-year-old male patient presents to the emergency department today for evaluation of headache and back pain. Patient states that he has had a headache for the last 2 days. States it is located all over his head. Denies any blurred or double vision. Does report mild dizziness. Denies any recent head injury. Denies this being the worse headache of his life. States when it started 2 days ago begun gradually and got worse. He has taken Excedrin Migraine and Aleve without relief. He is also reporting burning back pain to the bilateral hips and low back. States this pain is chronic. He is being evaluated and did have recent MRI he is just waiting for results. States he does have radiation of the pain down his legs and does report intermittent numb ness and tingling to the feet which is not new for him. States his pain patterns are consistent with his usual chronic back pain. Denies any loss of bowel or bladder control. Denies saddle anesthesia. Patient denies any recent rash, fever, chills, cough, shortness of breath, chest pain, abdominal pain, nausea, vomiting, diarrhea, constipation, back pain, weakness, hematuria, dysuria, urinary urgency, urinary frequency, or any other complaints. - Related Data Home Medications Medication Instructions Recorded Confirmed DULoxetine HCL [Cymbalta] 90 mg PO DAILY 10/10/18 12/06/19 Lacosamide [Vimpat] 50 mg PO BID 12/01/19 12/06/19 Naproxen 500 mg PO BID PRN 12/01/19 12/06/19 SUMAtriptan SUCCINATE [Imitrex] 100 mg PO DAILY PRN 12/01/19 12/06/19 mycophenolate mofetiL [Cellcept] 250 mg PO BID 12/01/19 12/06/19 mycophenolate mofetiL [Cellcept] 500 mg PO BID 12/01/19 12/06/19 traMADol HCl [Ultram] 50 mg PO TID PRN 12/01/19 12/06/19 Previous Rx's Medication Instructions Recorded Albuterol Inhaler (Mhu) [Ventolin 1 - 2 puff INHALATION RT-Q6H PRN 10/10/18 Hfa Inhaler (Mhu)] 10 Days #1 inhaler Docusate [Colace] 100 mg PO BID #20 capsule 12/06/19 HYDROcodone/APAP 5-325MG [[place] 1 tab PO Q6HR PRN #10 tab 12/06/19 5-325] Allergies Allergy/AdvReac Type Severity Reaction Status Date / Time amoxicillin AdvReac Nausea & Verified 07/19/20 01:56 Vomiting Review of Systems ROS Statement: Those systems with pertinent positive or pertinent negative responses have been documented in the HPI. ROS Other: All systems not noted in ROS Statement are negative. Past Medical History Past Medical History: No Reported History Additional Past Medical History / Comment(s): shingles tendonitis and carpel tunnel chronic neck pain, CIDP History of Any Multi-Drug Resistant Organisms: None Reported Past Surgical History: Hernia Repair Additional Past Surgical History / Comment(s): rt shoulder , left knee sx Past Psychological History: No Psychological Hx Reported Smoking Status: Current every day smoker Past Alcohol Use History: None Reported Past Drug Use History: Marijuana General Exam Limitations: no limitations General appearance: alert, in no apparent distress, other (Physical well- developed, well-nourished adult male patient in no acute distress. Vital signs upon presentation Are 98.1F, pulse 80, respirations 20, blood pressure 137/95, pulse ox 98% on room air.) Eye exam: Present: normal appearance, PERRL, EOMI. Absent: scleral icterus, conjunctival injection, periorbital swelling ENT exam: Present: normal exam, normal oropharynx, mucous membranes moist Neck exam: Present: normal inspection, full ROM. Absent: tenderness, meningismus, lymphadenopathy Respiratory exam: Present: normal lung sounds bilaterally. Absent: respiratory distress, wheezes, rales, rhonchi, stridor Cardiovascular Exam: Present: regular rate, normal rhythm, normal heart sounds. Absent: systolic murmur, diastolic murmur, rubs, gallop, clicks GI/Abdominal exam: Present: soft, normal bowel sounds. Absent: distended, tenderness, guarding, rebound, rigid Extremities exam: Present: normal inspection, full ROM, normal capillary refill, other (Skin to the lower extremities is pink, warm, dry. Cap refills less than 3 seconds.). Absent: tenderness, pedal edema, joint swelling, calf tenderness Back exam: Present: normal inspection, other. Absent: vertebral tenderness Neurological exam: Present: alert, oriented X3, CN II-XII intact Psychiatric exam: Present: normal affect, normal mood Skin exam: Present: warm, dry, intact, normal color. Absent: rash Course Vital Signs 07/19/20 01:52 Temperature 98.1 F Pulse Rate 80 Respiratory 20 Rate Blood Pressure 137/95 O2 Sat by Pulse 98 Oximetry Medical Decision Making - Medical Decision Making 50-year-old male patient percents to the emergency department today for evaluation of headache and back pain. Back pain is chronic he did recently have an MRI he is waiting for the results. Denies any new pain just states that his usual [id number] medications are not working. Headache started 2 days ago gradually worsening. No vomiting. No visual disturbance. He is neurologically intact no focal deficits. He'll be given IM injections of pain medication discharged up with his primary care physician for recheck in 1-2 days. Return parameters were discussed in detail. He verbalizes understanding and agrees with this plan. Disposition Clinical Impression: Headache, Chronic back pain Disposition: HOME SELF-CARE Condition: Good Instructions (If sedation given, give patient instructions): Acute Headache (ED), Chronic Back Pain (DC) Additional Instructions: Follow-up with your primary care physician for recheck in one to days. Return for any new, worsening, or concerning symptoms. Is patient prescribed a controlled substance at d/c from ED?: No Referrals: Marino Rosario DO [Primary Care Provider] - 1-2 days Time of Disposition: 02:14
== END 2020-07-19 02:30 | disposition home or self-care (01) ==
LOC: EC 01:42
DX: R51.9 Headache, unspecified (principal); M54.9 Dorsalgia, unspecified; G89.29 Other chronic pain; F17.200 Nicotine dependence, unspecified, uncomplicated; Z88.0 Allergy status to penicillin
CPT/HCPCS: 99284; 96372 ×2; J2270; J1885

== ENCOUNTER → 2020-08-07 | Outpatient (CLI) | payer OTHER ==
--- NOTE | 2020-08-07 09:45 | CT ---
EXAMINATION TYPE: CT chest wo con DATE OF EXAM: 08/07/2020 COMPARISON: NONE HISTORY: Smoking history, Pulmonary nodule CT DLP: 471 mGycm. Automated Exposure Control for Dose Reduction was Utilized. TECHNIQUE: CT scan of the thorax is performed without IV contrast. FINDINGS: LUNGS: Moderate biapical pleural/parenchymal scarring extending posteriorly and inferiorly slightly m ore nodular in contour. Few scattered micronodules, for reference 2 mm right lower lobe peripheral no dule image 40. No suspicious greater than 4 mm noncalcified pulmonary nodules bilaterally. No pleural effusion or pneumothorax is seen. MEDIASTINUM: Lack of IV contrast is noted to limit evaluation for mediastinal and especially hilar ad enopathy. There are no definitive greater than 1 cm hilar or mediastinal lymph nodes. No cardiomega ly or pericardial effusion is seen. Mild to moderate calcified plaque in the RCA distribution. OTHER: S-shaped scoliosis. IMPRESSION: Chronic changes without acute pulmonary process. No suspicious pulmonary nodules.
== END | disposition home or self-care (01) ==
LOC: RADCTMAIN 08:37
PROVIDERS: ATTEND Psychiatry & Neurology Neurology
DX: R91.1 Solitary pulmonary nodule (principal); Z87.891 Personal history of nicotine dependence
CPT/HCPCS: 71250

== ENCOUNTER → 2020-09-19 | Outpatient (CLI) | payer OTHER ==
[2020-09-20 03:46] LABS: Magnesium 1.9 mg/dL (1.5-2.4); Potassium 4.1 mmol/L (3.5-5.5)
== END | disposition home or self-care (01) ==
LOC: LABWHC1 11:59
PROVIDERS: ATTEND Psychiatry & Neurology Pain Medicine
DX: R51.0 Headache with orthostatic component, not elsewhere classified (principal); R53.83 Other fatigue; G90.09 Other idiopathic peripheral autonomic neuropathy
CPT/HCPCS: 36415; 83735; 84132

== ENCOUNTER 2020-12-07 19:07 | Emergency (ER) | payer OTHER ==
[2020-12-07 19:23] VITALS: BP 120/74; PULSE 84; RESP 20; TEMP 97.9
[2020-12-07] MEDS ORDERED: KETOROLAC 15 MG/ML 1 ML VIAL IM STA (19:35)
--- NOTE | 2020-12-07 20:03 | ED ---
Upper Extremity HPI - General Chief Complaint: Extremity Injury, Upper Stated Complaint: L shoulder pain Time Seen by Provider: 12/07/20 19:25 Source: patient, RN notes reviewed Mode of arrival: ambulatory Limitations: no limitations - History of Present Illness Initial Comments: Patient is a 50-year-old male that presents to emergency room with left shoulder pain. He has been having chronic pain in his left shoulder that feels like rotator cuff. He did note that he had right rotator cuff surgery and injury in his left now feels like his right did previous to surgery. He notes that he is currently on disability and doesn't work. He did appear to be in mild discomfort and pain during the exam interview. He denied any recent injury, trauma, excessive overhead work. He noted that he still has full range of motion and strength in his left upper extremity but with use over time his fingers became numb. He denied any weakness decreased range of motion strength chest pain shortness breath headache nausea vomiting diarrhea constipation fever fatigue chills. - Related Data Home Medications Medication Instructions Recorded Confirmed DULoxetine HCL [Cymbalta] 90 mg PO DAILY 10/10/18 12/06/19 Lacosamide [Vimpat] 50 mg PO BID 12/01/19 12/06/19 Naproxen 500 mg PO BID PRN 12/01/19 12/06/19 SUMAtriptan SUCCINATE [Imitrex] 100 mg PO DAILY PRN 12/01/19 12/06/19 mycophenolate mofetiL [Cellcept] 250 mg PO BID 12/01/19 12/06/19 mycophenolate mofetiL [Cellcept] 500 mg PO BID 12/01/19 12/06/19 traMADol HCl [Ultram] 50 mg PO TID PRN 12/01/19 12/06/19 Previous Rx's Medication Instructions Recorded Albuterol Inhaler (Mhu) [Ventolin 1 - 2 puff INHALATION RT-Q6H PRN 10/10/18 Hfa Inhaler (Mhu)] 10 Days #1 inhaler Docusate [Colace] 100 mg PO BID #20 capsule 12/06/19 HYDROcodone/APAP 5-325MG [[place] 1 tab PO Q6HR PRN #10 tab 12/06/19 5-325] Allergies Allergy/AdvReac Type Severity Reaction Status Date / Time amoxicillin AdvReac Nausea & Verified 12/07/20 19:23 Vomiting Review of Systems ROS Statement: Those systems with pertinent positive or pertinent negative responses have been documented in the HPI. ROS Other: All systems not noted in ROS Statement are negative. Past Medical History Past Medical History: No Reported History Additional Past Medical History / Comment(s): shingles tendonitis and carpel tunnel chronic neck pain, CIDP History of Any Multi-Drug Resistant Organisms: None Reported Past Surgical History: Hernia Repair Additional Past Surgical History / Comment(s): rt shoulder , left knee sx Past Psychological History: No Psychological Hx Reported Smoking Status: Current every day smoker Past Alcohol Use History: None Reported Past Drug Use History: Marijuana General Exam Limitations: no limitations General appearance: alert, in no apparent distress Head exam: Present: atraumatic, normocephalic, normal inspection Eye exam: Present: normal appearance, PERRL, EOMI. Absent: scleral icterus, conjunctival injection, periorbital swelling Neck exam: Present: normal inspection Respiratory exam: Present: normal lung sounds bilaterally. Absent: respiratory distress, wheezes, rales, rhonchi, stridor Cardiovascular Exam: Present: regular rate, normal rhythm, normal heart sounds. Absent: systolic murmur, diastolic murmur, rubs, gallop, clicks GI/Abdominal exam: Present: soft, normal bowel sounds. Absent: distended, tenderness, guarding, rebound, rigid Extremities exam: Present: normal inspection, full ROM, normal capillary refill. Absent: tenderness, pedal edema, joint swelling, calf tenderness Left Shoulder Exam: Present: normal inspection, tenderness (Lateral superior and posterior aspect to light palpation), other (Positive drop arm test, positive's Yoav test). Absent: full ROM (Increase secondary to pain), swelling, abrasion, laceration, ecchymosis, deformity, crepitus, dislocation Neurological exam: Present: alert, oriented X3, CN II-XII intact Psychiatric exam: Present: normal affect, normal mood Skin exam: Present: warm, dry, intact, normal color. Absent: rash Course Vital Signs 12/07/20 19:20 Temperature 97.9 F Pulse Rate 84 Respiratory 20 Rate Blood Pressure 120/74 O2 Sat by Pulse 97 Oximetry Medical Decision Making - Medical Decision Making 50-year-old male complaining of chronic left shoulder pain. X-ray left shoulder, 15 mg of Toradol ordered. X-ray of the left shoulder negative for any acute process. arm sling ordered. Case discussed with Dr. Sheridan, patient can follow-up with orthopedics outpatient. - Radiology Data Radiology results: report reviewed, image reviewed Left shoulder x-ray: Negative left shoulder exam. No fracture. Disposition Clinical Impression: Rotator cuff disorder Disposition: HOME SELF-CARE Condition: Stable Instructions (If sedation given, give patient instructions): Rotator Cuff Injury (ED) Additional Instructions: Please return to the Emergency Department if symptoms worsen or any other concerns. Follow-up with orthopedics in the next several days. Take Tylenol Motrin as needed for pain control. Wear arm sling throughout the day to help alleviate symptoms of movement discomfort. Is patient prescribed a controlled substance at d/c from ED?: No Referrals: Marino Rosario DO [Primary Care Provider] - 1-2 days Tono Augustin MD [STAFF PHYSICIAN] - 1-2 days
--- NOTE | 2020-12-07 20:13 | XR ---
EXAMINATION left shoulder COMPARISON: NONE HISTORY: Pain TECHNIQUE: 3 views FINDINGS: I see no fracture nor dislocation. JOINT SPACES ARE FAIRLY NORMAL. THERE ARE NO PATHOLOGIC CALCIFICATIONS. THERE IS MILD SPURRING AT THE AC JOINT. IMPRESSION: Negative left shoulder exam. No fracture.
== END 2020-12-07 20:55 | disposition home or self-care (01) ==
LOC: EC 19:07
DX: M67.912 Unspecified disorder of synovium and tendon, left shoulder (principal); F17.200 Nicotine dependence, unspecified, uncomplicated; F12.90 Cannabis use, unspecified, uncomplicated
CPT/HCPCS: 73030; 99283; 96372; J1885

== ENCOUNTER → 2021-02-12 | Outpatient (CLI) | payer OTHER ==
--- NOTE | 2021-02-13 07:54 | CTL ---
EXAMINATION TYPE: CT Low Dose Lung DATE OF EXAM ORDERED: 02/12/2021 HISTORY: Long-term tobacco use. Lung cancer screening CT DLP: 97.[address] CTDI: 2.7 mGy Automated exposure control for dose reduction was used. SCREENING VISIT: Initial study COMPARISON: Chest CT August 07, 2020 TECHNIQUE: Low dose computed tomography scan was performed through the chest at 1 mm thick sections a nd reconstructed images in the coronal plane at [address] DIAGNOSTIC QUALITY: Satisfactory FINDINGS: LUNG NODULES: None. No suspicious greater than 4 mm noncalcified nodules LUNGS: COPD: Severity: Mild Fibrosis: Severity: Mild to moderate apical and upper lung Lymph nodes: No greater than 1 cm Other findings: None RIGHT PLEURAL SPACE: Effusion: None Calcification: None Thickening: None Pneumothorax: None LEFT PLEURAL SPACE: Effusion: None Calcification: None Thickening: None Pneumothorax: None HEART: Heart Size: Normal Coronary calcification: Mild in the RCA Pericardial effusion: None OTHER FINDINGS: Upper abdomen: None Bony thorax: Slight scoliotic curvature and mild multilevel spurring. Supraclavicular region: None. Other: None. IMPRESSION: Mild emphysematous change and mild to moderate upper lung scarring. No suspicious nodules . CT LUNG RAD AND CT CHEST RECOMMENDATION: Lung-Rad 1 Negative: Continue annual screening with LDCT in 12 months. S Modifier (other clinically significant findings): None
== END | disposition home or self-care (01) ==
LOC: RADCTMAIN 17:36
PROVIDERS: ATTEND Family Medicine
DX: Z12.2 Encounter for screening for malignant neoplasm of respiratory organs (principal); J43.9 Emphysema, unspecified; Z72.0 Tobacco use
CPT/HCPCS: 71271

== ENCOUNTER → 2021-03-11 | Outpatient (CLI) | payer OTHER ==
--- NOTE | 2021-03-11 13:54 | US ---
EXAMINATION TYPE: US venous doppler duplex LE LT DATE OF EXAM: 03/11/2021 10:48 AM COMPARISON: NONE CLINICAL HISTORY: I80.9 Phlebitis and thrombophlebitis of unspecifie. chronic knee pain that has been worse x few days. No redness. No swelling. SIDE PERFORMED: Left TECHNIQUE: The lower extremity deep venous system is examined utilizing real time linear array sonog radha with graded compression, doppler sonography and color-flow sonography. VESSELS IMAGED: Common Femoral Vein Deep Femoral Vein Greater Saphenous Vein * Femoral Vein Popliteal Vein Small Saphenous Vein * Proximal Calf Veins (* superficial vessels) Left Leg: Negative for DVT IMPRESSION: 1. Left lower extremity ultrasound negative for deep venous thrombosis.
== END | disposition home or self-care (01) ==
LOC: RADUSWWP 10:31
PROVIDERS: ATTEND Orthopaedic Surgery
DX: G89.29 Other chronic pain (principal); M25.562 Pain in left knee

== ENCOUNTER → 2022-11-23 | Outpatient (CLI) | payer OTHER ==
[2022-11-23 12:15] VITALS: BP 117/90; PULSE 81; RESP 18; TEMP 97.9
--- NOTE | 2022-11-23 13:35 | P.PAINPG ---
PQRS Measure Charge Sheet Comment: HISTORY OF PRESENT ILLNESS: 52 yr old male as a referral from Dr Gallegos presents today w severe and chronic LBP secondary to DDD, spondylosis and facet arthropathy without myelopathy for evaluation. Pt states pain level is provoked at 8/10 in intensity, constant, localized in the mid to lower cervical spine, tender, stabbing in character w shooting pain towards the BL shoulders. Pain is provoked by overhead reaching, lifting and bending. Pain is alleviated by heat, topicals, medications (Montgomery, naproxen), hot showers, repositioning and rest. PMH: BL Carpal Tunnel, CIDP PSH: Hernia Repair, R Shoulder Surgery, L Knee Surgery SH: Daily tobacco use, No ETOH abuse, Cannabis use FH: Non contributory All: See lsit Meds: See list REVIEW OF ORGAN SYSTEMS: CONSTITUTIONAL: No fevers or chills. No recent weight loss. NEUROLOGICAL: + numbness and tingling along the distal extremities. No seizure disorders or headaches. MUSCULOSKELETAL: + pain PSYCHIATRIC: Denies current depression or suicidal thoughts. Physical Examinations : Constitutional : Cooperative , not in acute distress . Neurologic : Cranial nerve II to XII intact. No focal neurological deficits. Psychiatric : alert & oriented x 3. Matching mood & appropriate affect. Judgment & insight intact. Musculoskeletal : Cervical Spine Motor strength in the deltoid and biceps: Normal right side. Normal Left side Motor strength biceps and the wrist extensors: Normal right side . Normal left side Motor strength in the triceps muscle: Normal right side. Normal left side Deep tendon reflexes: Normal at the biceps. Normal at Brachioradialis. Normal at triceps Vertebral body tenderness to deep palpation over C6 Cervical facet loading test: positive bilaterally Spurling test: positive over C6 Neck distraction test: positive bilaterally Zoey sign: positive bilaterally Lumbar spine Motor strength lower extremities ,thigh and legs 5/5 Right side , 5/5 Left side Deep tendon reflexes : Normal Knee Jerk. Normal Ankle Jerk Vertebral body tenderness over Lumbar facet Loading Test: positive Right / positive Left Range of motion of the lumbar spine Flexion 30 degrees, extension 10 degrees Straight Leg Raise test: Left/ Right positive at degree Cece test: positive right / positive left. Severe tenderness over the Sacroiliac joint on the Right / Left sides Gaenslen test: positive bilaterally Seated flexion test: positive bilaterally. Sacral spine : Severe tenderness over the Sacroiliac joint: right side / left side Range of motion: Flexion of the lumbar spine <60 degrees Range of motion: Extension of the lumbar spine <20 degrees Gaenslen's Test positive Andrea's Test positive Cece test: positive right side / left side Thigh Thrust Test Sacral Thrust Test Imaging: MRI non contrast of the cervical spine from 07/13/22 reviewed Assessment/ Plan : Cervical DDD Recommendation of DEZ C6-7. May need a series of injections for optimal pain relief. Risks, benefits of procedure discussed and patient verbalized understanding. Admits to aspirin or anti- coagulant use or medical history of diabetes. Protocol for discontinuation/ continuation of medications marbella procedure discussed. All questions answered. I have spent greater than 30 minutes on patient care today. Dr Parmar was available by phone for the evaluation of this patient. The time was used to review the medical records including relevant urine studies and Prescription history (MAPs), review of the available imaging, evaluation and examination of t he patient, coordination of care with the medical staff and if applicable referring physicians, as well as creation of the medical record PQRS Narrative: Smoking Status Current every day smoker Home Medications: Ambulatory Orders Albuterol Inhaler [Ventolin Hfa Inhaler] 1 - 2 puff INHALATION RT-Q6H PRN 10 Days #1 inhaler 10/10/18 DULoxetine HCL [Cymbalta] 90 mg PO DAILY 10/10/18 Lacosamide [Vimpat] 50 mg PO BID 12/01/19 Naproxen 500 mg PO BID PRN 12/01/19 SUMAtriptan succinate [Imitrex] 100 mg PO DAILY PRN 12/01/19 mycophenolate mofetiL [Cellcept] 250 mg PO BID 12/01/19 mycophenolate mofetiL [Cellcept] 500 mg PO BID 12/01/19 traMADol HCl [Ultram] 50 mg PO TID PRN 12/01/19 Docusate [Colace] 100 mg PO BID #20 capsule 12/06/19 HYDROcodone/APAP 5-325MG [Montgomery 5-325] 1 tab PO Q6HR PRN #10 tab 12/06/19 Controlled Substance Measures - Controlled Substance Measures Is patient prescribed a controlled substance at discharge?: No
== END ==
LOC: PNWHC3 10:07
PROVIDERS: ATTEND Specialist
DX: M50.123 Cervical disc disorder at C6-C7 level with radiculopathy (principal); M47.12 Other spondylosis with myelopathy, cervical region; M47.22 Other spondylosis with radiculopathy, cervical region; F17.200 Nicotine dependence, unspecified, uncomplicated; G90.513 Complex regional pain syndrome I of upper limb, bilateral; G61.81 Chronic inflammatory demyelinating polyneuritis; Z88.0 Allergy status to penicillin
CPT/HCPCS: 99211

== ENCOUNTER → 2022-12-04 | Outpatient (CLI) | payer MEDICARE, OTHER ==
--- NOTE | 2022-12-08 04:57 | CT ---
EXAMINATION TYPE: CT cervical spine wo con DATE OF EXAM: 12/04/2022 COMPARISON: 07/26/2015, CT chest 02/12/2021 HISTORY: 52-year-old male M47.22, Pre-surgical planning. TECHNIQUE: Contiguous axial scanning of the cervical spine without IV contrast. Coronal and sagittal reconstructions performed. CT DLP: 513.1 mGycm Automated exposure control for dose reduction was used. FINDINGS: No craniocervical junction abnormality, predental space widening, or prevertebral soft tissue swellin g. Redemonstrated reversal of the normal cervical lordosis. Alignment is maintained. Mild to moderate disc/endplate degenerative change particularly from C5 through C7 levels. Disc osteo phyte complexes at both these levels contributes to mild narrowing of the spinal canal. Detailed asse ssment of the spinal canal is limited due to artifact from patient shoulders at these levels. No acute fracture of the cervical spine. Moderate uncovertebral joint arthropathy mid to lower cervical spine. At C3-C4, changes result in mild right neuroforaminal stenosis. At C5-C6, changes result in mild bilateral neuroforaminal stenosis. At C6/C7, changes result in moderate bilateral neuroforaminal stenoses. Visualized upper lungs shows moderate emphysematous change and extensive biapical pleural parenchymal scarring along with areas of nodularity measuring up to 6 mm that has an overall similar configurati on compared to 02/12/2021. Consider ongoing annual lung cancer screening CT. IMPRESSION: 1. MODERATE SPONDYLOTIC CHANGE ESPECIALLY C5-C7 LEVELS WHERE THERE AREN'T DISC OSTEOPHYTE COMPLEXES M ILDLY NARROWING THE SPINAL CANAL. 2. VARIABLE MILD NEUROFORAMINAL STENOSES OUTLINED ABOVE, MODERATE ON BOTH SIDES AT C6-C7. 3. REVERSAL OF THE NORMAL CERVICAL LORDOSIS MAY BE POSITIONAL OR DUE TO MUSCLE SPASM, SIMILAR COMPARE D TO 2015. 4. COPD. PROMINENT BIAPICAL PLEURAL-PARENCHYMAL SCARRING. AREAS OF NODULARITY APPEAR UNCHANGED FROM . CONSIDER ONGOING ANNUAL LOW-DOSE LUNG CANCER SCREENING CT.
== END | disposition home or self-care (01) ==
LOC: RADCTMAIN 12:00
PROVIDERS: ATTEND Orthopaedic Surgery
DX: M47.22 Other spondylosis with radiculopathy, cervical region (principal); M25.78 Osteophyte, vertebrae; M99.71 Connective tissue and disc stenosis of intervertebral foramina of cervical region; J44.9 Chronic obstructive pulmonary disease, unspecified; J98.4 Other disorders of lung
CPT/HCPCS: 72125

== ENCOUNTER 2022-12-15 11:38 | Day surgery (SDC) | payer MEDICARE, OTHER ==
[2022-12-11 13:00] VITALS: BMI 27.4
[2022-12-15] MEDS ORDERED: LACTATED RINGERS 1,000 ML IV SCH (11:59)
[2022-12-15] MEDS ORDERED: LIDOCAINE 1% (10MG/ML) FOR IV START INTRADERMA PRN (11:59)
[2022-12-15 12:08] VITALS: TEMP 97.4
[2022-12-15] MEDS ORDERED: IOPAMIDOL M200 10 ML VIAL ONE (13:06)
[2022-12-15] MEDS ORDERED: DEXAMETHASONE SOD PHOSPHATE 10 MG/ML 1 ML VIAL ONE (13:06)
[2022-12-15] MEDS ORDERED: IV FLUID CONTINUATION 750 ML IV ONE (13:15)
--- NOTE | 2022-12-15 13:15 | P.PCN ---
Date of Procedure: 12/15/22 Procedure(s) Performed: . PROCEDURE 1. Cervical epidural steroid injection under fluoroscopic guidance, C6-7 (fluoroscopy images available in the radiology department ) 2. Cervical epidurogram. PREOPERATIVE DIAGNOSIS: 1- Cervical Degenerative Disc Diseases 2-cervical spondylosis with cervical Facet arthropathy without myelopathy. POSTOPERATIVE DIAGNOSIS: : 1- Cervical Degenerative Disc Diseases , 2-cervical spondylosis with cervical Facet arthropathy without myelopathy. ANESTHESIA: Lidocaine 1% 3 mL only EBL 0 PROCEDURE INDICATION: The patient with neck pain and radiculitis unresponsive to conservative treatment consents for procedure. PROCEDURE DESCRIPTION / TECHNIQUE: The patient was seen and identified in the preoperative area. Risks, benefits, complications, including but not limited to infections ,bleeding , allergic reactions to the medications ,and not complete pain releife, and alternatives were discussed with the patient, the patient agreed to proceed with the procedure and signed the consent. Patient was taken to the OR and time out was completed. The patient was placed in the prone position on the procedure table. A pillow was placed under the patients chest to increase the cervical interlaminar space. The cervical area was prepped and draped in the usual sterile fashion. Vital signs were closely monitored during the procedure. Using anterior-posterior fluoroscopy, the C6-7interlaminar space was identified and the skin over this site was marked and then infiltrated with 1% lidocaine subcutaneously. Subsequently, a 20-gauge 3-1/2-inch Tuohy epidural needle was inserted and advanced toward the epidural space by means of the ``hanging-drop technique and guided by AP and lateral fluoroscopy. The correct needle position in the epidural space was verified with the injection of 2 mL of the water soluble contrast dye Isovue-200 and observing an excellent epidurogram with the epidural spread of the dye, after negative aspiration for blood and CSF and in the absence of paresthesias. then, mixture containing 20 mg Dexamethasone and 2 ml of preservative-free normal saline injected and a washout of epidurogram was seen. Needle was withdrawn intact, skin was cleansed, and bandages were applied. Complications= none. Disposition= patient was placed in supine position and transferred to the recovery room area in stable condition and there was no evidence of upper or lower extremity motor or sensory deficit after the procedure patient was d ischarged from recovery room after discharge criteria met and home discharge instructions was given by the staff and patient will follow with the pain clinic in 2-4 weeks
[2022-12-15 13:21] VITALS: RESP 16
[2022-12-15 13:26] VITALS: BP 126/87; PULSE 88
--- NOTE | 2022-12-15 13:26 | FL ---
EXAMINATION TYPE: FL guided pain mgmt statistic DATE OF EXAM: 12/15/2022 HISTORY: Fluoroscopy time Total dose area product (DAP) in mGy*m? (or similar): 0.00-3 IMPRESSION: 1. Fluoroscopy time.
== END 2022-12-15 13:45 | disposition home or self-care (01) ==
LOC: ORPAIN 11:38
PROVIDERS: ATTEND Specialist
DX: M50.123 Cervical disc disorder at C6-C7 level with radiculopathy (principal); M47.22 Other spondylosis with radiculopathy, cervical region; Z88.0 Allergy status to penicillin
CPT/HCPCS: 62321; J1100; Q9966

== ENCOUNTER → 2022-12-22 | Outpatient (CLI) | payer MEDICARE, OTHER ==
--- NOTE | 2022-12-23 08:35 | XR ---
EXAMINATION TYPE: XR chest 2V DATE OF EXAM: 12/22/2022 COMPARISON: NONE TECHNIQUE: PA and lateral views submitted. HISTORY: Follow-up x-ray FINDINGS: The lungs are clear and there is no pneumothorax, pleural effusion, or focal pneumonia. Heart size normal and no overt failure. Osseous structures demonstrate hypertrophic and degenerative changes of the spine. Biapical pleural thickening and hyperinflation suggestive of COPD noted. There is a 8mm no dule right lung apex. Postsurgical change right shoulder. Arthropathy of the shoulders. IMPRESSION: 1. No acute process. COPD. 2. There is an 8 mm nodule in the right upper lobe CT of the chest is recommended.
== END | disposition home or self-care (01) ==
LOC: RADXRMAIN 16:18
PROVIDERS: ATTEND Family Medicine
DX: Z01.818 Encounter for other preprocedural examination (principal); J44.9 Chronic obstructive pulmonary disease, unspecified; R91.1 Solitary pulmonary nodule
CPT/HCPCS: 71046

== ENCOUNTER → 2022-12-30 | Outpatient (CLI) | payer MEDICARE, OTHER ==
--- NOTE | 2022-12-30 18:44 | CT ---
EXAMINATION TYPE: CT chest wo con DATE OF EXAM: 12/30/2022 COMPARISON: 02/12/2021, 08/07/2020 HISTORY: 52-year-old male R91.1 f/u lung nodule TECHNIQUE: Contiguous axial scanning of the chest without IV contrast. Coronal and sagittal reconstru ctions performed. CT DLP: 263.40 mGycm Automated exposure control for dose reduction was used. FINDINGS: Heart is normal size without pericardial effusion. Aorta normal caliber with conventional arch vessel branching anatomy. No thoracic lymphadenopathy by CT size criteria. Biapical pleural parenchymal scarring and associated nodularity remains unchanged. Subtle patchy groundglass and tree-in-bud opacities lateral right upper lobe, axial image 21 through 23 is new. A few additional subtle patches of groundglass, for example, anterior right midlung and medial left l ower lobe also appear new. 6 mm endobronchial density posterior right lower lobe, axial image 36 is unchanged, probable mucoid p lugging. Suspect additional bibasilar areas of mucoid plugging within subsegmental bibasilar branches . Associated tree-in-bud opacities and some groundglass change particularly at the left lower lobe. More nodular appearance measuring up to 8 mm left lower lobe, axial image 39. Stable 7 mm intrafissural lymph node left midlung, axial image 27. Upper abdomen shows [id number] stool. Otherwise, no gross abnormality. Bones: No osseous destructive process. IMPRESSION: 1. NEW BILATERAL AREAS OF TREE-IN-BUD OPACITY AND GROUNDGLASS ALONG WITH SUSPECTED AREAS OF SMALL AIR WAYS MUCOID IMPACTION IN THE BASILAR LOWER LOBES. CORRELATE FOR ASPIRATION, UNCONTROLLED ASTHMA, OR I NFECTIOUS BRONCHIOLITIS. 2. A MORE NODULAR 8MM AREA IN THE LEFT LOWER LOBE. CONSIDER FOLLOW-UP CT IN 3 MONTHS TO REASSESS THIS NODULE AND ALSO TO ENSURE CLEARANCE OF THE OTHER PARENCHYMAL CHANGES.
== END | disposition home or self-care (01) ==
LOC: RADCTMAIN 12:17
PROVIDERS: ATTEND Family Medicine
DX: R91.8 Other nonspecific abnormal finding of lung field (principal)
CPT/HCPCS: 71250

== ENCOUNTER → 2023-01-06 | Outpatient (CLI) | payer MEDICARE, OTHER | END | disposition home or self-care (01) | LOC: LABPAT 14:53 | PROVIDERS: ATTEND Orthopaedic Surgery | DX: Z01.812 Encounter for preprocedural laboratory examination (principal); Z22.322 Carrier or suspected carrier of Methicillin resistant Staphylococcus aureus; M47.812 Spondylosis without myelopathy or radiculopathy, cervical region; M48.02 Spinal stenosis, cervical region | CPT/HCPCS: 87070 ==

== ENCOUNTER 2023-01-11 07:23 | Day surgery (SDC) | payer MEDICARE, OTHER ==
[2023-01-05 15:31] VITALS: BMI 26.4
[~2023-01-11 07:23] MED LIST changes: +ACETAMINOPHEN TAB 500 MG TAB PO PRN; +DEXAMETHASONE SOD PHOSPHATE 4 MG/ML 1 ML VIAL IV ONE; +GABAPENTIN 300 MG CAP PO PRN; +HYDROmorphone 0.5 MG/0.5 ML SYRINGE IVP PRN; -IODINE/POTASS IOD (LUGOLS) BOTTLE TOPICAL ONE; +LACTATED RINGERS 1,000 ML IV SCH; +LIDOCAINE 1% (10MG/ML) FOR IV START INTRADERMA PRN; +MIDAZOLAM 2 MG/2 ML VIAL IV PRN; +ONDANSETRON 4 MG/2 ML VIAL IVP ONE; +ONDANSETRON 4 MG/2 ML VIAL IVP PRN; +TRANEXAMIC 1,000 MG/100ML-NACL 1,000 MG in SALINE 1 100ML.BAG IVPB PRN
[2023-01-11] MEDS ORDERED: LACTATED RINGERS 1,000 ML IV ONE ×3 (07:40→11:22)
--- NOTE | 2023-01-11 08:27 | P.HPOR ---
History of Present Illness H&P Date: 01/11/23 .T:Title: [facility] Follow-up Date of :74 [id number]: Age: 52 year Height: 5'5" Weight: 165 lbs BMI: 27.46 kg/m2 Occupation: Disabled VAS: 7 CHIEF COMPLAINT: Cervical pain DOI: Chronic DOS: n/a Duration of current treatment regiment:n/a HISTORY : Xrays No New xrays taken in office Trauma or injury No Work-Related No Pain description Dull, aching, burning, increasing Location Posterior Patient notes that their pain radiates to bilateral upper extremities Activity Modification Yes Hand Dominance Right TREATMENTS COMPLETED: 6 weeks of PT completed? Month and Year of last PT date? No Physician directed home exercise completed? Yes, Patient has trialed the physician directed home exercise program without relief of their symptoms. Medications Yes List: [place], Naproxen, and Gabapentin, Baclofen, and Duloxetine Alternative interventions Chiropractic:No Massage therapy:Yes R.I.C.E:Yes Brace:No Injections Yes at [facility] How many? 1 (next one scheduled for 12/15/22) Did they help? Yes, approximately 2 weeks of relief RFA:No SUBJECTIVE: Mr. Gonzales presents to the office for a follow-up regarding their cervical pain. The patient reports experiencing a constant dull ache and burning sensation throughout the cervical spine that has been ongoing for the past 3 years. The patient stated that his symptoms have progressed over the past 1 year with no known injury or trauma to indicate an exact onset of their symptoms. In addition to their cervicalpain, they do report that it radiates down into the bilateral upper extremities, associatedwith numbness and tingling through the C5-C6 dermatome. The patient expresses that when he ambulates his head to the left that his neuropathy symptoms increase. Overall the patient has seen a progressive increase in symptoms since their onset. Mr. Gonzales's symptoms are exacerbated with any rotation, lifting or prolonged activity, and due to this they note that it is increasingly difficult for him to complete many of their daily tasks. Patient is having severe sleep disturbances as well due to their ongoing pain and associated symptoms. Regarding treatments, the patient has pr eviously trialed the above listed modalities. Patient denies trialing any other modalities at this time. For their symptoms, the patient has been taking [place], Naproxen, Duloxetine, Baclofen, and Gabapentin. Otherwise the patient denies any f/c/sob/cp and ambulates independently today. HPI: Mr. Gonzales presents to the office for a follow up of their cervical pain on 10/21/2022. Patient reports a constant dull ache and burning cervical pain ongoing for the past 3 years and has progressed over the past year with no known injury or trauma to indicate an exact onset of their symptoms. In addition to their cervicalpain, they do report that it radiates into the bilateral upper extremities, associatedwith numbness and tingling through C5-C6 dermatome. Patient expresses that when he turns his head left that the neuropathy symptoms increase. Overall the patient has seen a progressive increase in symptoms since their onset. Mr. Gonzales symptoms are exacerbated with any rotation, lifting or prolonged activity, due to this they notes that it is increasingly difficult for Mr. Gonzales to complete many of their daily tasks. Patient is having severe sleep disturbances as well due to their ongoing pain and associated symptoms. Regarding treatments, the patient has previously trialed the above listed modalities. Patient denies trialing any other modalities at this time. For their symptoms, the patient has been taking [place], Naproxen, duloxetine and Gabapentin. Otherwise the patient denies any f/c/sob/cp and ambulates independently. Mr. Gonzales presents to the office for an evaluation of their cervical pain on 09/24/2022. Patient reports a constant dull ache and burning cervical pain ongoing for the past 3 years and has progressed over the past year with no known injury or trauma to indicate an exact onset of their symptoms. In addition to their cervicalpain, they do report that it radiates into the bilateral upper extremities, associatedwith numbness and tingling through C5-C6 dermatome. Patient expresses that when he turns his head left that the neuropathy symptoms increase. Overall the patient has seen a progressive increase in symptoms since their onset. Mr. Gonzales symptoms are exacerbated with any rotation, lifting or prolonged activity, due to this they notes that it is increasingly difficult for Mr. Gonzales to complete many of their daily tasks. Patient is having severe sleep disturbances as well due to their ongoing pain and associated symptoms. Regarding treatments, the patient has previously trialed the above listed modalities. Patient denies trialing any other modalities at this time. For their symptoms, the patient has been taking [place], Naproxen, and Gabapentin. Otherwise the patient denies any f/c/sob/cp and ambulates independently. The patients' past social, medical, family, surgical history, as well as review of systems, have been reviewed. Please refer to the Neurosurgery History and Physical form that has been scanned in to our electronic medical record system. 14 points review of systems completed and as stated in HPI, all other systems reviewed are negative. Social History: Reviewed, see appropriate section of the chart for details. Smoking: Former smoker; patient quit smoking on 10/23/2022 P3 Family History: Reviewed, see appropriate section of the chart for details. P2 Past Medical History: Reviewed, see appropriate section of the chart for details. [id number] Medications: Rx: DULoxetine 60 mg capsule,delayed release Ref: 0 Rx: gabapentin 100 mg capsule Ref: 0 Rx: HYDROcodone 5 mg-acetaminophen 325 mg tablet Ref: 0 Rx: naproxen 500 mg tablet Ref: 0 PHYSICAL EXAMINATION: General:Awake, alert, appropriate for age, in no acute distress. HEENT:No unusual neck masses around region of lateral neck triangle, thyroid, supraclavicular groove Heart: Regular rate and rhythm, normal S1, S2 and no murmur/gallop. Lungs:Clear to auscultation bilaterally with no use of accessory muscles. Extremities: Skin warm and dry without acute lesions, coloration, temperature, skin intact, no tenderness or erythema Integument: Hairy patches:ABSENT Dorsal skin dimples:ABSENT Cafe au lait spots:ABSENT Surgical incisions:n/a Palpation: Please see Pain drawing on Intake sheet for further detail. Midline spinal tenderness:No E6 Cervical Tenderness: Yes, lateral left E6 Paralumbar tenderness:No E6 Parathoracic tenderness:No E6 Buttocks tenderness:No E6 Sacroilliac Tenderness:No POSTURAL and MUSCULO-SKELETAL EVALUATION: Coronal Balance:NEUTRAL Recumbent testing:Patient isable to lay flat on back Sagittal Balance:NEUTRAL Shoulder Profile:LEVEL Pelvic Girdle:LEVEL Neck ROM:RESTRICTED Lumbar ROM:UNRESTRICTED Shoulder ROM:Symmetrical Hip ROM:Symmetrical Knee ROM: Symmetrical Hands:Normal appearance, symmetrical Feet:Normal appearance, Symmetrical VASCULAR STATUS : LEFTRIGHT Wrist Pulses INTACT INTACT Pedal Pulses (Dors. pedis & post.tibialis) INTACT INTACT Color NORMAL NORMAL Edema Absent Absent NEUROLOGIC EXAMINATION: Mental Status:Awake and alert, fully oriented, with normal attention, concentration and memory, and fluent, appropriate speech. Cranial Nerves: I: Olfactory not tested. II: Visual acuity normal, no visual field deficit noted with confrontation. III,IV: Normal pupillary reflexes & intact extraocular movements without nystagmus. V,: Intact symmetrical facial sensation. VII: Intact symmetrical facial motor movement VIII: Hearing intact. IX,X: Intact gag, swallow, & normal voice. XI: Sternocleidomastoid, trapezius function intact. XII: Tongue midline with normal movements. L'hermitte's Sign: Negative / absent Spurling'Sign: Positive left Cubital percussion test: Absent bilaterally. Ortez-Tinel sign - Carpal region: Absent bilaterally. Straight Leg Raising: Absent bilaterally. Crossed straight leg raise:negative O8 MOTOR EXAM (0-5/5, N/T Muscle appearance: Symmetrical, without signs of atrophy or dystrophy UPPER EXTREMITY RIGHT LEFT Shoulder Abduction 4+/5 4+/5 Biceps 4+/5 4+/5 Triceps 4+/5 4+/5 Wrist Extension 5/5 5/5 Hand Intrnsics 5/5 5/5 Horseshoer 5/5 5/5 Hand and finger dexterity intact bilaterally? yes Disdiadochokinesis examination negative bilaterally? yes LOWER EXTREMITY RIGHT LEFT Hip Flexion 5/5 5/5 Knee Extension 5/5 5/5 Knee Flexion 5/5 5/5 Dorsiflexion 5/5 5/5 Plantarflexion 5/5 5/5 EHL 5/5 5/5 FHL 5/5 5/5 Toe heel walk / heel-toe walk intact while maintaining satisfactory balance? yes Single leg stance: intact Trendelenburg sign negative bilaterally REFLEXES(0-4/2, NT)Upper ExtremityLower Extremity Right 3 2 Left 3 2 Pathological Reflexes RIGHT LEFT Ortez's Present Present Clonus Absent Absent Babinski Absent Absent Sensory system (0-4, N/T) Test type RU ROMY RL LL Joint-Position 2 2 2 2 Vibration 2 2 2 2 Pain & LT sense 2 2 2 2 Dermatomal Deficit: C5-6 C5 None None Gait and Functional Evaluation: Ambulatory aids: Independent Romberg's test: Intact bilaterally Steady Gait RADIOGRAPHS XRay Cervical multiview (Lateral, Flexion, Extension, AP, Oblique) 6 views taken at [facility] on 09/24/22: - re-reviewed with the patient in office today and demonstrates: multilevel spondylitic and degenerative changes with straightening of the normal lordosis. Multilevel diminished disc height, more prominently at C5-C6 C6-C7. there is anterior osteophyte formation present at C5-C6. Vertebral body heights are preserved. No acute [facility]seous abnormalities[email or web address]: - re-reviewed with the patient in office today and demonstrates: C1-C2: There is normal relationship between the anterior arch of C1 and the dens. There is no evidence of canal stenosis or neural foraminal narrowing. C2-C3: 12mm annular bulge effaces the ventral thecal sac resulting in moderate to severe right and severe left neural foraminal encroachment and bilateral exiting C3 impingement in conjunction with marginal osteophyte formation. The c entral canal is adequately patent. C3-C4: 2mm annular bulge effaces the ventral surface of the thecal sac resulting in severe right and moderate to severe left neural foraminal encroachment and bilateral exiting C4 nerve impingement in conjunction with marginal osteophyte formation. The central canal is adequately patent. C4-C5: 12mm annular bulge effaces the ventral surface of the thecal sac r esulting in moderate to severe right and moderate left neural foraminal encroachment and bilateral exiting C5 nerve impingement in conjunction with marginal osteophyte formation. The central canal is adequately patent. C5-C6: 2mm annular bulging effaces the ventral surface of the thecal sac resulting in severe right and moderate to severe left neural foraminal encroachment and bilateral exiting C6 nerve impingement in conjunction with marginal osteophyte formation. The central canal is patent. C6-C7: 2-3mm broad based disc herniation effaces the ventral surface of the thecal sac resulting in severe bilateral neural foraminal encroachment and bilateral exiting C7 nerve impingement in conjunction with marginal osteophyte formation. Mild canal stenosis is seen. C7-T1: 1-2mm annular bulging effaces the ventral surface of the thecal sac resulting in moderate to severe bilateral neural foraminal encroachment and bilateral exiting C8 nerve impingement in conjunction with marginal osteophyte formation. The central canal is adequately patent. Nonspecific straightening of normal cervical lordosis consistent with strain in the appropriate clinical circumstances. ASSESSMENT 1. C5-7 spondylosis and stenosis 2. Upper extremity radiculopathy 3. Upper extremity weakness PLAN All options were reviewed today, we decided the best course of action would be: - I discussed treatment options with the patient, including operative and non- operative options, and they have elected to proceed with the following surgical procedure: C5-7 anterior cervical decompression and fusion The indications, risks, benefits, and alternatives to surgery were discussed wi th the patient and family at length. Specifically (but not limited to) the risks of infection, stiffness, recurrence of symptoms, need for revision surgery, local numbness, neurovascular injury, and blood clots were discussed. The patient's questions were answered. - I have ordered a CT scan of the cervical spine, which the patient should complete prior to surgery. - Ambulate daily. - Take pain medications as needed and as directed. - Ice and rest for pain and swelling control. Spine Surgery Risk Review Mr. Gonzales is presenting for evaluation of cervicalgia. It was my pleasure to have seen and examined Mr. Gonzales. In our visit today we have had a chance to go over subjective complaints, physical examination findings and treatments including the natural course history without intervention and various interventional options. The patients imaging demonstrates: XRay Cervical multiview (Lateral, Flexion, Extension, AP, Oblique) 6 views taken at [facility] on 09/24/22: - re-reviewed with the patient in office today and demonstrates: multilevel spondylitic and degenerative changes with straightening of the normal lordosis. Multilevel diminished disc height, more prominently at C5-C6 C6-C7. there is anterior osteophyte formation present at C5-C6. Vertebral body heights are preserved. No acute osseous abnormalities. [email or web address]: - re-reviewed with the patient in office today and demonstrates: C1-C2: There is normal relationship between the anterior arch of C1 and the dens. There is no evidence of canal stenosis or neural foraminal narrowing. C2-C3: 12mm annular bulge effaces the ventral thecal sac resulting in moderate to severe right and severe left neural foraminal encroachment and bilateral exiting C3 impingement in conjunction with marginal osteophyte formation. The central canal is adequately patent. C3-C4: 2mm annular bulge effaces the ventral surface of the thecal sac resulting in severe right and moderate to severe left neural foraminal encroachment and bilateral exiting C4 nerve impingement in conjunction with marginal osteophyte formation. The central canal is adequately patent. C4-C5: 12mm annular bulge effaces the ventral surface of the thecal sac resulting in moderate to severe right and moderate left neural foraminal encroachment and bilateral exiting C5 nerve impingement in conjunction with marginal osteophyte formation. The central canal is adequately patent. C5-C6: 2mm annular bulging effaces the ventral surface of the thecal sac resulting in severe right and moderate to severe left neural foraminal encroachment and bilateral exiting C6 nerve impingement in conjunction with marginal osteophyte formation. The central canal is patent. C6-C7: 2-3mm broad based disc herniation effaces the ventral surface of the thecal sac resulting in severe bilateral neural foraminal encroachment and bilateral exiting C7 nerve impingement in conjunction with marginal osteophyte formation. Mild canal stenosis is seen. C7-T1: 1-2mm annular bulging effaces the ventral surface of the thecal sac resulting in moderate to severe bilateral neural foraminal encroachment and bilateral exiting C8 nerve impingement in conjunction with marginal osteophyte formation. The central canal is adequately patent. Nonspecific straightening of normal cervical lordosis consistent with strain in the appropriate clinical circumstances. On physical exam, Mr. Gonzales demonstrates: a constant dull ache and burning sensation throughout the cervical spine that has been ongoing for the past 3 years. The patient stated that his symptoms have progressed over the past 1 year with no known injury or trauma to indicate an exact onset of their symptoms. In addition to their cervicalpain, they do report that it radiates down into the bilateral upper extremities, associatedwith numbness and tingling through the C5-C6 dermatome. The patient expresses that when he ambulates his head to the left that his neuropathy symptoms increase. Overall the patient has seen a progressive increase in symptoms since their onset. Mr. Gonzales's symptoms are exacerbated with any rotation, lifting or prolonged activity, and due to this they note that it is increasingly difficult for him to complete many of their daily tasks. I have explained to the patient that as their condition progresses it will cause further neurological deficits and eventual paralysis. Based on the patients imaging, physical exam, and the rapid progression and disabling nature of their symptoms, at this time I recommend surgery in the form of a: C5-7 anterior cervical decompression and fusion. I discussed the risk and benefits of this procedure at length with Mr. Gonzales. The patient agreed to considered pursuing the procedure above mentioned . Prior to surgery, she should follow up with her PCP (Cardio, ID, IM etc) for clearance. Questions were invited and answered, and the patient wishes to proceed as outlined below. Currently, I am recommendin.C5-7 anterior cervical decompression and fusion 2.Follow up with PCP for surgical clearance 3.Review of surgical risks and benefits as well as an educational packet on the proposed surgical procedure. Risks: All surgical procedures come with inherent risks, including those related to positioning, anesthesia, intraoperative findings, and postoperative complications. It is important to understand that surgery does not come with any guarantee of a successful outcome as complications and adverse events are always possible. The patient was given a handout in office today discussing the surgical procedure and risks associated with the intervention, both of which were discussed with the patient. These risks include but are not limited to the following: * Experiencing same, different or even worse symptoms in back, neck, arms, or legs compared to before surgery. Requiring further surgery or other forms of treatment presently or at some time in the future at same or other levels of the intended spine surgery. On an extreme but fortunately relatively rare basis severe complication such as blindness, stroke, heart attack, temporary and/or permanent nerve injury, paralysis, coma, or may occur, sometimes without known explanation. Surgical complications may include but are not limited to risk of infection, fluid accumulation in the surgical dissection site, including a seroma or hematoma, that requires additional surgery, wound drainage, bleeding, new numbness or weakness, vision changes/loss, spinal fluid leakage, non-healing and/or infected incision, headaches, difficulty or inability to swallow, hoarseness, hemopneumothorax, pneumothorax, impotence, retrograde ejaculation, vaginal dryness; injury to nerves, spinal cord, blood vessels, lymphatics or other vital organs (i.e., bowel injury, injury to the great vessels); heterotopic bone formation; complications related to the hardware such as screws, rods, cages including misplaced hardware, device failure, instrumentation at the wrong spine level, hardware fracture/breakage, or hardware loosening; vertebral failure of the spinal column above or below the newly placed hardware; retained surgical instrumentations or devices and the need for further surgery. * Medical risks of the planned spine surgery include but are not limited to generalized Infections to the whole body or local areas outside of the surgical site (sepsis), heart attack, bleeding, anaphylaxis, meningitis, seizure, epilepsy, hearing loss, burn allen, laceration of the head or other areas of the body, bruising, hypersensitivity of the skin, bladder over distension; allergic reaction; shoulder injury related to positioning; fat, blood and air clots to other areas of the body like heart, lungs, brain; failure of internal organs such as lungs, kidneys, liver and excessive bleeding. If blood transfusions are necessary, note that transfusions may cause intolerance reactions such as anaphylaxis or other complex reactions. Despite best efforts, the results of spine surgery might not heal in terms of bone, soft tissues such as skin, fascia, ligaments, and joints. Additionally, in order to achieve best possible results, spine surgery may be carried out beyond the initially planned levels and involve decompression, fusion including insertion of hardware at levels other than the original intended area of surgical interest change some portions of the procedure in order to ensure the best possible outcomes. With spine surgery and spinal fusion, there are different off label uses of instrumentation (devices, implants and hardware) as well as biological substances (bone morphogenic proteins, demineralized bone matrix) as well as using extra bone from allograft sources (i.e. cadaver bone) or autograft (iliac crest bone, ribs, or the spine itself). The patient has been given information about these practices and their inherent risks and benefits. [facility] is an educational center that serves as a training facility for neurosurgical and orthopedic [employer] and Nursing students. Physician assistants are medically trained surgical providers who function in the outpatient, inpatient, and operating room setting under the direct supervision of the attending surgeon. [facility] has multiple operating rooms with single and overlapping rooms running daily. They currently function under the required guidelines as produced by the Senate Finance Committee with regards to the overlapping rooms and will continue to comply with changes to this policy as they occur. The requirements include and are complied with as follows: (1) the critical portions of the overlapping rooms will not occur at the same time, (2) the attending physician will be physically present during the critical portions of the procedure and immediately available during the entire case, and (3) a back-up attending is designated should the primary attending not be immediately avai lable. The patient has had a chance to review all the listed information, has been given print outs detailing this information, and has had all his/her questions answered to their satisfaction. It was my pleasure to have seen and examined Mr. Gonzales. In our visit today we have had a chance to go over my understanding of our patient's current condition, the natural course history without intervention and various interventional options. Questions were invited and answered, and the patient wishes to proceed as outlined above. I have seen and examined the patient for 25 minutes and we have spent more than 50% of the time in repeat and detailed counseling about the patient's condition, its natural course history with out and as much as can be predicted with surgery and re-review of various surgical treatment options. In conclusion, Mr. Gonzales and [his/her spouse/partner] requested we proceed with the above suggested surgery and are willing to accept risks and limitations of the suggested surgery as nature of the disease process and our best attempts at treatment for the condition. Thank you again for allowing us to be part of your patient's care. Please don't hesitate to contact me if you have any further questions. FOLLOW-UP Preoperative Appointment Pt Education (Informational booklet, instructions, etc) given at today's appointment: Yes .ED:Patient Education: Y Medications Reviewed: YES Attestation: In our visit today Mr. Gonzales and I have had a chance to go over my understanding of the patient's current condition, the natural course history without intervention and various interventional options. Questions were invited and answered, and the patient wishes to proceed as outlined above. I will be sure to keep you updated afterMr. Gonzales returns here for further follow-up. Thank you again for your referral. Please do not hesitate to contact me if you have any further questions. Signed and authenticated by: Feliciano Alan [facility] [address] [facility], [address] [address] This message is confidential, intended only for the named recipient(s) and may contain information that is privileged or exempt from disclosure under applicable law. If you are not the intended recipient(s), you are notified that the dissemination, distribution or copying of this information is strictly prohibited. If you received this message in error, please notify the sender then delete this message. Patient verbalizes understanding of the information discussed. The above note was initiated by Samanta Farah, physician recording assistant passenger locomotive engineer for Dr. Feliciano Gallegos. This note has been reviewed by Dr. Gallegos, who has made his personal changes and impressions for this document. CC: Marino Rosario D.O. #Orders: CT Scan # SIGNED BY Feliciano Gallegos (GOO)12/09/2022 08:56A Past Medical History Past Medical History: No Reported History Additional Past Medical History / Comment(s): shingles tendonitis and carpel tunnel chronic neck pain, CIDP History of Any Multi-Drug Resistant Organisms: None Reported Past Surgical History: Hernia Repair Additional Past Surgical History / Comment(s): rt shoulder , left knee sx Past Anesthesia/Blood Transfusion Reactions: Postoperative Nausea & Vomiting (PONV) Smoking Status: Current every day smoker Additional Past Alcohol Use History / Comment(s): QUIT SMOKING October- WAS SMOKING 1/2 PPD FOR 43 YEARS Additional Drug Use History / Comment(s): USES MARIJUANA TID FOR CHRONIC PAIN- INSTRUCTED TO REFRAIN FROM USE FOR AT LEAST 24 HOURS PRIOR TO PROCEDURE - Past Family History Mother Family Medical History: No Reported History Medications and Allergies Home Medications Medication Instructions Recorded Confirmed Type Naproxen 500 mg PO BID PRN 12/01/19 01/05/23 History SUMAtriptan succinate [Imitrex] 100 mg PO DAILY PRN 12/01/19 01/05/23 History HYDROcodone/APAP 5-325MG [[place] 1 tab PO Q6HR PRN #10 tab 12/06/19 01/05/23 Rx 5-325] Baclofen 10 mg PO BID 12/11/22 01/05/23 History Loratadine 10 mg PO DAILY 12/11/22 01/05/23 History Pantoprazole [Protonix] 40 mg PO QAM 12/11/22 01/05/23 History Albuterol Inhaler [Ventolin Hfa 1 - 2 puff INHALATION Q6H PRN 01/05/23 01/05/23 History Inhaler] DULoxetine HCL [Cymbalta] 60 mg PO QAM 01/05/23 01/05/23 History Diclofenac Sodium Gel [Voltaren 1 applic TOPICAL QID 01/05/23 01/05/23 History Gel] Fluticasone Nasal [place] [Flonase 1 spray EA NOSTRIL DAILY 01/05/23 01/05/23 History Nasal [place]] Gabapentin [Neurontin] 100 mg PO TID 01/05/23 01/05/23 History Allergies Allergy/AdvReac Type Severity Reaction Status Date / Time amoxicillin AdvReac Nausea & Verified 01/05/23 15:05 Vomiting Physical Examination Osteopathic Statement: *. No significant issues noted on an osteopathic structural exam other than those noted in the History and Physical/Consult.
[2023-01-11] MEDS ORDERED: ROCURONIUM 10 MG/ML (5 ML VIAL) IV ONE (08:54)
[2023-01-11] MEDS ORDERED: LIDOCAINE 2% INJ 20 MG/ML (2 ML VIAL) ONE (08:54)
[2023-01-11] MEDS ORDERED: NEOSTIGMINE 1 MG/ML 10 ML VIAL ONE (08:54)
[2023-01-11] MEDS ORDERED: LABETALOL 5 MG/ML VIAL MDV ONE (08:54)
[2023-01-11] MEDS ORDERED: fentaNYL (PF) 50 MCG/ML 2 ML AMP ONE (08:54)
[2023-01-11] MEDS ORDERED: GLYCOPYRROLATE 0.2 MG/ML 2 ML VIAL ONE (08:54)
[2023-01-11] MEDS ORDERED: MIDAZOLAM 2 MG/2 ML VIAL ONE (08:54)
[2023-01-11] MEDS ORDERED: SUCCINYLCHOLINE CHLORIDE 200 MG/10 ML VIAL IV ONE (08:54)
[2023-01-11] MEDS ORDERED: PROPOFOL 10 MG/ML 20 ML VIAL IV ONE (08:54)
[2023-01-11] MEDS ORDERED: TRANEXAMIC 1,000 MG/100ML-NACL PREMIX BAG ONE (08:54)
[2023-01-11] MEDS ORDERED: KETAMINE 10 MG/ML 20 ML VIAL ONE (08:54)
[2023-01-11] MEDS ORDERED: HYDROmorphone (PF) 1 MG/ML ONE (08:54)
[2023-01-11] MEDS ORDERED: THROMBIN (BOVINE) 5,000 UNIT VIAL TOPICAL ONE (09:51)
[2023-01-11] MEDS ORDERED: GELATIN SPONGE,ABSORB (LARGE) 1 EACH SPONGE TOPICAL ONE (09:51)
--- NOTE | 2023-01-11 11:16 | FL ---
EXAMINATION TYPE: FL guidance operating room DATE OF EXAM: 01/11/2023 HISTORY: Fluoroscopy time Total dose area product (DAP) in uGy*m?, mGy*cm? (or similar): 0.78510 IMPRESSION: 1. Fluoroscopy time.
[2023-01-11 11:25] VITALS: TEMP 97.4
--- NOTE | 2023-01-11 11:28 | P.PN ---
Progress Note - Text Progress Note Date: 01/11/23 Postop: . Patient seen and examined they are doing well. Their pain is under control at this time. They are moving all 4 extremities without any issues. Vital signs are stable.. They are currently recovering and will be transferred to Phase II once deemed stable by the PACU Phase I team and anesthesiologist. No Other issues at this time they deny fever chills shortness of breath or chest pain. C collar in place, well fitting Maintain drain Maintain dressing CDI Must meet DC criteria to go home today.
[2023-01-11] MEDS ORDERED: hydrALAZINE HCL 20 MG/ML 1 ML VIAL IVP ONE (11:31)
--- NOTE | 2023-01-11 12:39 | XR ---
EXAMINATION TYPE: XR cervical spine limited DATE OF EXAM: 01/11/2023 COMPARISON: 01/11/2023 HISTORY: Cervical fusion TECHNIQUE: 2 views FINDINGS: Visualized lung gallegos are clear. Underlying COPD suspected. There is a nodular irregular d ensity in the right upper lobe measuring 8 mm. There are postsurgical changes overlying the anterior cervical spine at level C5, C6 and C7 which rocio ear in near-anatomic alignment. The fixation plate appears to be immediately apposed to the anterior margin of the respective vertebral segments. Disc spacers are in near-anatomic alignment. There appears to be a surgical drain extending in the prevertebral soft tissue structures with a smal l amount of air noted within the prevertebral soft tissue structures. IMPRESSION: 1. Postsurgical changes apparent anatomic alignment with surgical drain and small amount of air withi n prevertebral soft tissues. This likely is postsurgical. 2. 8 mm right upper lobe pulmonary nodule
[2023-01-11] MEDS ORDERED: HYDROcodone/APAP 10-325MG 1 EACH TAB ONE (12:58)
[2023-01-11] MEDS ORDERED: ONDANSETRON 4 MG/2 ML VIAL IVP ONE (13:04)
[2023-01-11] MEDS ORDERED: HYDROcodone/APAP 10-325MG 1 EACH TAB PO ONE (13:08)
[2023-01-11 13:34] VITALS: BP 129/80; PULSE 75; RESP 20
--- NOTE | 2023-01-12 09:20 | P.OP ---
Date of Procedure: 01/11/23 Preoperative Diagnosis: 1. C5-7 spondylosis with stenosis 2. UE radiculopathy 3. UE weakness 4. Neck pain Postoperative Diagnosis: 1. C5-7 spondylosis with stenosis 2. UE radiculopathy 3. UE weakness 4. Neck pain Procedure(s) Performed: 1. C5-6, C6-7 anterior cervical discectomy and fusion (02377, 45376) 2. Application of non integrated three segment plate (27550) 3. INsertion of biomechanical device x2 ([id number]) Use of IO microscope IONM was not available for this case. Implants: -Micheal cascadia 8mm 7 deg x2 cages -[place] ozark plate three segment MagnatOs Anesthesia: GETA Surgeon: Feliciano Gallegos Production Crew Supervisor #1: Clive Bell (was present and assisted with all aspects of the case from position to closure) Estimated Blood Loss (ml): 25 IV fluids (ml): 1,200 Urine output (ml): 0 Pathology: none sent Condition: stable Disposition: PACU Indications for Procedure: Mr. Gonzales is presenting for evaluation of cervicalgia. It was my pleasure to have seen and examined Mr. Gonzales. In our visit today we have had a chance to go over subjective complaints, physical examination findings and treatments including the natural course history without intervention and various interventional options. The patients imaging demonstrates: XRay Cervical multiview (Lateral, Flexion, Extension, AP, Oblique) 6 views taken at [facility] on 09/24/22: - re-reviewed with the patient in office today and demonstrates: multilevel spondylitic and degenerative changes with straightening of the normal lordosis. Multilevel diminished disc height, more prominently at C5-C6 C6-C7. there is anterior osteophyte formation present at C5-C6. Vertebral body heights are preserved. No acute osseous abnormalities. [id number]: - re-reviewed with the patient in office today and demonstrates: C1-C2: There is normal relationship between the anterior arch of C1 and the dens. There is no evidence of canal stenosis or neural foraminal narrowing. C2-C3: 12mm annular bulge effaces the ventral thecal sac resulting in moderate to severe right and severe left neural foraminal encroachment and bilateral exiting C3 impingement in conjunction with marginal osteophyte formation. The central canal is adequately patent. C3-C4: 2mm annular bulge effaces the ventral surface of the thecal sac resulting in severe right and moderate to severe left neural foraminal encroachment and bilateral exiting C4 nerve impingement in conjunction with marginal osteophyte formation. The central canal is adequately patent. C4-C5: 12mm annular bulge effaces the ventral surface of the thecal sac resulting in moderate to severe right and moderate left neural foraminal encroachment and bilateral exiting C5 nerve impingement in conjunction with marginal osteophyte formation. The central canal is adequately patent. C5-C6: 2mm annular bulging effaces the ventral surface of the thecal sac resulting in severe right and moderate to severe left neural foraminal en croachment and bilateral exiting C6 nerve impingement in conjunction with marginal osteophyte formation. The central canal is patent. C6-C7: 2-3mm broad based disc herniation effaces the ventral surface of the thecal sac resulting in severe bilateral neural foraminal encroachment and bilateral exiting C7 nerve impingement in conjunction with marginal osteophyte formation. Mild canal stenosis is seen. C7-T1: 1-2mm annular bulging effaces the ventral surface of the thecal sac resulting in moderate to severe bilateral neural foraminal encroachment and bilateral exiting C8 nerve impingement in conjunction with marginal osteophyte formation. The central canal is adequately patent. Nonspecific straightening of normal cervical lordosis consistent with strain in the appropriate clinical circumstances. On physical exam, Mr. Gonzales demonstrates: a constant dull ache and burning sensation throughout the cervical spine that has been ongoing for the past 3 years. The patient stated that his symptoms have progressed over the past 1 year with no known injury or trauma to indicate an exact onset of their symptoms. In addition to their cervicalpain, they do report that it radiates down into the bilateral upper extremities, associatedwith numbness and tingling through the C5-C6 dermatome. The patient expresses that when he ambulates his head to the left that his neuropathy symptoms increase. Overall the patient has seen a progressive increase in symptoms since their onset. Mr. Gonzales's symptoms are exacerbated with any rotation, lifting or prolonged activity, and due to this they note that it is increasingly difficult for him to complete many of their daily tasks. I have explained to the patient that as their condition progresses it will cause further neurological deficits and eventual paralysis. Based on the patients imaging, physical exam, and the rapid progression and disabling nature of their symptoms, at this time I recommend surgery in the form of a: C5-7 anterior cervical decompression and fusion. I discussed the risk and benefits of this procedure at length with Mr. Gonzales. The patient agreed to considered pursuing the procedure above mentioned . Prior to surgery, she should follow up with her PCP (Cardio, ID, IM etc) for clearance. Questions were invited and answered, and the patient wishes to proceed as outlined below. Currently, I am recommendin.C5-7 anterior cervical decompression and fusion Description of Procedure: C5-7 ACDF The patient was seen and examined in the preoperative area. All preoperative protocols were followed. Informed consent was obtained risks and benefits of the procedure were discussed at length. Risks including bleeding infection damage to the surrounding tissue and risk of reoperation were discussed with the patient. Risk of anesthesia up to and including was a discussed with the patient. These are outlined in the risk review. They were willing to accept these risks and all the risks of surgery. The patient was given a weight-based dose of antibiotics in the form of 2 g Ancef. The patient was seen and evaluated by the anesthesia team who deemed them fit for surgery. The site was marked, the patient was willing to proceed with the procedure. The patient was transferred to the operative suite by the Department of anesthesia. They were then drifted off to sleep by the department anesthesia and GETA was performed. The patient tolerated this well. Sutton catheter was placed by nursing staff, a-traumatically. Once confirmation of lines and ventilation the patient was transferred to a Supine Christian table very carefully. All bony prominences including wrists, elbows, axilla, chest, hips, and thighs, and feet were padded very well. Special attention was paid to the genitalia, and these were padded accordingly. SCDs were placed on bilateral lower extremities and were connected. Arms were well padded and placed at their side thumbs up. Once in position, again we confirmed good ventilation capabilities and that lines were running appropriately. The patients Cervical spine was then exposed. 1010s were placed outlining the incision site. Standard alcohol was used to clean the incision site and allowed to dry. C-arm was used to bio-alla the patient and confirm level for incision which was marked with a skin marker. Operative briefing was performed with all teams and everyone in agreement to proceed. The patient was then prepped and draped in a normal sterile fashion. Timeout was then performed, and all parties agreed with the procedure to be performed. Transverse skin incision was then made on the right side of the patients neck 3 cm and dissection taken down to the platysma which was split transversely. Sub platysma flap was made, and interval identified between SCM and medial structures. Omohyoid was visualized and protected. Blunt dissection taken down to the anterior cervical facia which was identified. Blunt prob was then placed and lateral image taken which confirmed levels for operation. These levels were then marked with a bovi. Subperiosteal dissection of the longissimus muscles were then done over these levels identifying uncovertebral joints bilaterally. Retractor was then placed deep to these muscles and held in place with a bed arm. Starting at C6-7, [place] pins were placed into C6 and C7 and gentle distraction taken out over the levels. Lisbeth rongure used to remove disc material. Operating microscope brought in for visualization. Complete discectomy performed at this level with curette, rongure and pituitary. High speed ervin used to remove osteophytes anteriorly and posteriorly until PLL was identified. 6-0 up curette then used to identify the canal and resect the PLL. 2-0 and 3-0 [place] used then to remove PLL and disc herniation and performed b/l foraminotomies. Once good decompression accomplished, meticulous hemostasis was performed. Sizers were then placed under lateral fluoroscopy until the desired height and lordosis. Cage was then selected, packed with autograft and allograft and placed under lateral imaging. Once in good position it was tested and stable. Motors run before and after cage placement were stable. The wound was irrigated, and autograft placed lateral to the cage anteriorly for fusion. [place] pin was then removed from C7 and placed into C5. Gentle distraction taken out over C5-6 now. Complete discectomy done at C5-6 as described including decompression, b/l foraminotomies and PLL resection. Burring of endplates was minimal, osteophytes removed as described. Spacers were then sized and placed under lateral imaging. Cage selected, packed with graft and placed under lateral images. Once in position, meticulous hemostasis performed, and motors remained stable before and after cage placement. AP image confirmed good placement of cages. Wound was irrigated. A separate, non-integrated plate was then selected and sized under lateral image. The plate was then placed with screws. Fixed screws drilled into C7 b/l and screws placed. Then into C6 and finally C5 with variable screws. All locking mechanisms set, and all screws had good purchase. Final AP and lateral images taken confirmed good placement of hardware and good reduction and adventist of height. The wound was then irrigated copiously with NSS. Surgicel placed deep in the wound. A deep drain placed out a separate incision and sewed into place. Layered closure then performed with 3-0 Vicryl in the platysma and sub-Q tissue. 4-0 Strata fix in the subcuticular tissue. The wound was then cleaned, and dried and skin glue placed. Once glue dried an Opifoam was placed. The patient was then transferred back to their hospital bed a-traumatically. The drain continued to hold suction. They were placed in a soft collar. They were then awakened by the department of anesthesia having tolerated the procedure well without complications.
== END 2023-01-11 14:30 | disposition home or self-care (01) ==
LOC: OR 07:23
PROVIDERS: ATTEND Orthopaedic Surgery
DX: M47.26 Other spondylosis with radiculopathy, lumbar region (principal); M48.02 Spinal stenosis, cervical region; F12.90 Cannabis use, unspecified, uncomplicated; F17.200 Nicotine dependence, unspecified, uncomplicated; Z79.899 Other long term (current) drug therapy; Z79.51 Long term (current) use of inhaled steroids; Z88.0 Allergy status to penicillin
CPT/HCPCS: 86900; 86901; 86850; 72040; 22551; 22853; 20930; 20937; 22845; C1713; J0360; J1100; J0690; J2405

== ENCOUNTER → 2023-04-15 | Outpatient (CLI) | payer MEDICARE ==
--- NOTE | 2023-04-16 10:15 | CT ---
EXAMINATION TYPE: CT chest w con DATE OF EXAM: 04/15/2023 COMPARISON: 12/30/2022 HISTORY: 53-year-old male R91.1, f/u nodules TECHNIQUE: Contiguous axial scanning of the chest after the administration of 100 mL of Isovue 300. Coronal/sagittal reconstructions performed. CT DLP: 302.1mGycm. Automatic exposure control utilized for a dose reduction. FINDINGS: The heart is normal size without pericardial effusion. Aorta normal caliber with conventional arch vessel branching anatomy. Prominent subcarinal lymph node measuring 1.0 cm appears unchanged. Bilateral hilar lymph nodes better seen after contrast administration measuring up to 1 cm. 7 mm right bronchial lymph node, axial image 32. Findings probably reactive/post inflammatory. Previous tree-in-bud nodularity and patchy groundglass change in the lung bases shows improvement. Mi nimal bronchiolectasis is noted at the basilar lateral right lower lobe. There is a new 7 mm anterior basilar left lower lobe pulmonary nodule, axial image 47 which should be reassessed at follow-up. Moderate biapical pleural parenchymal scarring redemonstrated. Mild emphysematous change. Minimal sub pleural reticular change suggesting mild fibrosis. Small patch of tree-in-bud opacity posterior left midlung is new Visualized upper abdomen shows no gr oss abnormality. Some mixing artifact noted within the main portal vein. Bones: ACDF hardware. Mild degenerative disc disease thoracic spine. IMPRESSION: 1. COPD with mild emphysema. Scattered mild interstitial fibrosis and prominent biapical pleural pare nchymal scarring are redemonstrated. 2. Some fluctuation in the tree-in-bud opacities. Most of these changes have improved from 12/30/2022. A new infectious/inflammatory patch is present in the posterior left midlung. Correlate with patient 's symptoms. 3. A new 7 mm left basilar pulmonary nodule may also be infectious/inflammatory. Ongoing short interv al follow-up to reassess and exclude a neoplastic etiology.
== END | disposition home or self-care (01) ==
LOC: RADCTMAIN 14:19
PROVIDERS: ATTEND Internal Medicine Critical Care Medicine
DX: J43.9 Emphysema, unspecified (principal); R91.1 Solitary pulmonary nodule; R91.8 Other nonspecific abnormal finding of lung field
CPT/HCPCS: 71260; Q9967

== ENCOUNTER → 2023-08-17 | Outpatient (CLI) | payer MEDICARE ==
--- NOTE | 2023-08-18 07:25 | US ---
EXAMINATION TYPE: US carotid duplex BILAT DATE OF EXAM: 08/17/2023 COMPARISON: NONE CLINICAL INDICATION: Male, 53 years old with history of R42 DIZZINESS AND GIDDINESS; Weakness to left side of body x 1 year TECHNIQUE: Carotid duplex ultrasound examination. Indirect Doppler criteria was utilized. FINDINGS: EXAM MEASUREMENTS: RIGHT: Peak Systolic Velocity (PSV) cm/sec ----- Right CCA: 120 ----- Right ICA: 115 ----- Right ECA: 131 ICA/CCA ratio: 0.95 RIGHT: End Diastole cm/sec ----- Right CCA: 38 ----- Right ICA: 29 ----- Right ECA: 26 LEFT: Peak Systolic Velocity (PSV) cm/sec ----- Left CCA: 110 ----- Left ICA: 137 ----- Left ECA: 94 ICA/CCA ratio: 1.2 LEFT: End Diastole cm/sec ----- Left CCA: 30 ----- Left ICA: 24 ----- Left ECA: 16 VERTEBRALS (direction of flow): Right Vertebral: Antegrade Left Vertebral: Antegrade Rhythm: No plaque or intimal thickening seen. Elevated velocity within the left ICA LEAD ENTERPRISE ARCHITECT NOTES: IMPRESSION: 50-69% stenosis of the left carotid bifurcation. Less than 50% stenosis of the right carotid bifurcation. Criteria for Assigning % of Stenosis / Diameter reduction (Estimation based on the indirect measurements of the internal carotid artery velocities (ICA PSV). 1. Normal (no stenosis)=ICA PSV < 125 cm/s: ratio < 2.0: ICA EDV<40 cm/s. 2. Less than 50% stenosis=ICA PSV < 125 cm/s: ratio < 2.0: ICA EDV<40 cm/s. 3. 50 to 69% stenosis=ICA PSV of 125 to 230 cm/s: ration 2.0 ? 4.0: ICA EDV 40-100 cm/s. 4. Greater than 70% stenosis to near occlusion= ICA PSV > 230 cm/s: ratio > 4.0: ICA EDV > 100 cm/s. 5. Near occlusion= ICA PSV velocities may be low or undetectable: variable ratio and ICA EDV. 6. Total occlusion=unable to detect flow.
== END | disposition home or self-care (01) ==
LOC: RADUSWWP 16:12
PROVIDERS: ATTEND Family Medicine
DX: R42 Dizziness and giddiness (principal)
CPT/HCPCS: 93880

== ENCOUNTER → 2023-11-01 | Outpatient (CLI) | payer MEDICARE ==
--- NOTE | 2023-11-01 11:02 | CT ---
EXAMINATION TYPE: CT chest w con CT DLP: 545 mGycm, Automated exposure control for dose reduction was used. DATE OF EXAM: 11/01/2023 10:24 AM COMPARISON: Chest radiograph from same day. Multiple CTs of the chest with most recent on 04/15/2023 . CLINICAL INDICATION:Male, 53 years old with history of R91.1 SOLITARY PULMONARY NODULE; PHH, Solitary pulmonary nodule TECHNIQUE: Multiple axial images were obtained through the chest. Sagittal and coronal reformats were created for review. Contrast used:100 mL of Isovue 370 with IV Contrast (None if empty) Oral contrast used: (None if empty) FINDINGS: LUNGS/ PLEURA: The previously mentioned 7 mm nodule in the left basilar lung position is no longer pr esent. The tree in bud opacities are no longer present. Mild emphysematous change is reidentified. Sc attered mild interstitial fibrosis and prominent biapical pleural parenchymal scarring are redemonstr ated. The lung parenchyma appears unremarkable. AIRWAY: Patent and unremarkable. HEART: Size within normal limits. MEDIASTINUM: No gross evidence of adenopathy. VASCULATURE: No aortic aneurysm. MUSCULOSKELETAL: No acute osseous abnormalities SOFT TISSUES/LYMPH NODES: Unremarkable. LOWER NECK: No significant findings. UPPER ABDOMEN: No significant findings. IMPRESSION: Resolution of previously identified nodular infiltrate left lung base. Resolution of tree-in-bud infiltrate. Mild emphysema Follow up recommendations for incidental pulmonary nodules, if there are any, are per Cori?jr [employer] or [employer]. [email or web address]?lang=us
== END | disposition home or self-care (01) ==
LOC: RADCTMAIN 09:33
PROVIDERS: ATTEND Internal Medicine Critical Care Medicine
DX: J43.9 Emphysema, unspecified (principal); R91.1 Solitary pulmonary nodule
CPT/HCPCS: 71260; Q9967

== ENCOUNTER → 2024-05-18 | Outpatient (CLI) | payer MEDICARE ==
--- NOTE | 2024-05-24 12:44 | MR ---
EXAMINATION TYPE: MR cspine/lspine wo con DATE OF EXAM: 05/18/2024 9:06 PM COMPARISON: None. CLINICAL INDICATION: Male, 54 years old with history of M50.30, Neck pain into shoulder blades/randolph up per extremities, Low back pain into buttocks/randolph lower extremities TECHNIQUE: Multiplanar multiecho imaging on a 3.0 Deirdre magnet is performed through the cervical spin e. IV Contrast: 0 mL Gadobutrol (None, if empty) FINDINGS: The craniovertebral junction is normal. Vertebral body alignment is normal. There is an anterior cervical fusion C5-C7.r C7-T1: No focal disc herniation or significant disc bulge is evident. No spinal canal stenosis or n eural foraminal stenosis is present. C6-7: Minimal disc bulge is present with anterior thecal sac contact. No AP spinal canal stenosis. Mi ld foraminal narrowing from uncovertebral hypertrophy may be present.. C5-6: No focal disc herniation or significant disc bulge is evident. No spinal canal stenosis or won ral foraminal stenosis is present. C4-5: Minimal disc disc bulge is present centrally with mild anterior thecal sac compression. No cord contact or spinal canal stenosis is present. Neural foramen are patent.. C3-4: No focal disc herniation or significant disc bulge is evident. No spinal canal stenosis or won ral foraminal stenosis is present. C2-3: No focal disc herniation or significant disc bulge is evident. No spinal canal stenosis or won ral foraminal stenosis is present. There is a 1.3 cm structure in the posterior right subcutaneous tissues may be a sebaceous cyst serie s 601 image 1 . 3. Incidental note of subcutaneous sebaceous cyst right posterior back IMPRESSION: 1. Anterior cervical fusion. No spinal canal stenosis or canal narrowing evident. 2. Very minimal disc bulging may be present seen for 5 mild anterior thecal sac compression EXAMINATION TYPE: MR cspine/lspine wo con DATE OF EXAM: 05/18/2024 9:06 PM COMPARISON: None. CLINICAL INDICATION: Male, 54 years old with history of M50.30, Neck pain into shoulder blades/randolph up per extremities, Low back pain into buttocks/randolph lower extremities TECHNIQUE: Multiplanar, multisequence images of the lumbar spine were acquired. IV Contrast: 0 mL Gadobutrol (None, if empty) FINDINGS: Cord ends at the L1-L2 level. L5-S1: No focal disc herniation or significant disc bulge. No spinal canal stenosis. Moderate right and mild left foraminal narrowing present L4-L5: No focal disc herniation or significant disc bulge. No spinal canal stenosis. Neural foramen are patent. Minimal ligamentum flavum laxity may be present with osteophyte lateral thecal sac flat tening. No stenosis is evident L3-L4: No focal disc herniation or significant disc bulge. No spinal canal stenosis. Neural foramen are patent. L2-L3: No focal disc herniation or significant disc bulge. No spinal canal stenosis. Neural foramen are patent. L1-L2: No focal disc herniation or significant disc bulge. No spinal canal stenosis. Neural foramen are patent. T12-L1: No focal disc herniation or significant disc bulge. No spinal canal stenosis. Neural forame n are patent. IMPRESSION: 1. No suspicious acute or significant chronic changes within the lumbar spine. Follow-up can be perfo rmed as clinically indicated. [facility], , 05/24/2024 12:42 PM
== END | disposition home or self-care (01) ==
LOC: RADMRIMAIN 19:46
PROVIDERS: ATTEND Family Medicine
DX: M54.16 Radiculopathy, lumbar region (principal); M50.30 Other cervical disc degeneration, unspecified cervical region; L72.3 Sebaceous cyst; M43.22 Fusion of spine, cervical region
CPT/HCPCS: 72141; 72148

== ENCOUNTER → 2024-10-04 | Outpatient (CLI) | payer MEDICARE | END | disposition home or self-care (01) | LOC: LABPAT 15:44 | PROVIDERS: ATTEND Surgery | DX: Z01.812 Encounter for preprocedural laboratory examination (principal); K40.90 Unilateral inguinal hernia, without obstruction or gangrene, not specified as recurrent | CPT/HCPCS: 93005 ==

== ENCOUNTER → 2024-10-04 | Outpatient (CLI) | payer MEDICARE ==
--- NOTE | 2024-10-05 07:09 | US ---
EXAMINATION TYPE: US scrotum with doppler. DATE OF EXAM: 10/04/2024 COMPARISON: NONE CLINICAL INDICATION: Male, 54 years "Pain in right testicle. TECHNIQUE: Grayscale, color Doppler and spectral Doppler imaging of the scrotum. FINDINGS: EXAM MEASUREMENTS: TESTICLES: Right Testicle: 4.7 x 2.0 x 3.5 cm Left Testicle4.4 x 2.0 x 3.2 cm EPIDIDYMIS HEAD: Right Epididymis: 1.0 x 1.2 x 1.4 cm Left Epididymis: .9 x .8 cm 2mm and 3mm cyst visualized. Doppler performed to assess for testicular vascularity; good bilateral color flow and spectral wavefo cristi are seen. There is no evidence of testicular torsion. Presence of hydroceles: no Presence of varicoceles: Increased vascularity on the left. IMPRESSION: 1. No evidence for acute process. 2. No evidence for intratesticular mass. 3. Appropriate arterial and venous spectral waveforms to the testes. 4. Left varicocele. [facility], , 10/05/2024 7:07 AM
--- NOTE | 2024-10-05 07:10 | US ---
EXAMINATION TYPE: US groin RT DATE OF EXAM: 10/04/2024 COMPARISON: NONE CLINICAL INDICATION: Male, 54 years old with history of R10.2 PELVIC AND PERINEAL PAIN N50.819 TESTIC ULAR; TECHNIQUE: Grayscale with or without color Doppler imaging of the area of hernia concern. Real-time scanning was performed by the coal hauler utilizing Valsalva and additional dynamic maneuve rs to assess for hernia. Images of the contralateral side were also acquired for direct comparison. FINDINGS/IMPRESSION: Assess for hernia at location of: Right groin . No definite hernia visualized on today's exam. No v isualized adenopathy or organized fluid collections. [facility], , 10/05/2024 7:08 AM
== END | disposition home or self-care (01) ==
LOC: RADUSWWP 15:52
PROVIDERS: ATTEND Family Medicine
DX: I86.1 Scrotal varices (principal); K40.90 Unilateral inguinal hernia, without obstruction or gangrene, not specified as recurrent; N50.811 Right testicular pain
CPT/HCPCS: 76870; 93975

== ENCOUNTER → 2024-10-05 | Outpatient (CLI) | payer MEDICARE ==
[2024-10-05 19:09] LABS: Basophils # (A) 0.07 X 10*3/uL (0.00-0.10); Basophils % (A) 0.9 %; Eosinophils % (A) 3.7 %; HGB 14.8 g/dL (13.0-17.0); Lymphocytes # (A) 2.32 X 10*3/uL (0.90-5.00); MCH 31.5 pg (27.0-32.0); MCHC 34.4 g/dL (32.0-37.0); MCV 91.5 FL (80.0-97.0); Mean Platelet Volume 9.7 FL (9.5-12.2); Monocytes % (A) 8.7 %; NRBC Per 100 WBC 0 X 10*3/uL (0.00-0.01); Neutrophils # (A) 4.56 X 10*3/uL (1.80-7.70); Platelet Count 241 X 10*3/uL (140-440); RDW 13.2 % (11.5-14.5); WBC 8.01 X 10*3/uL (4.50-10.00)
== END ==
LOC: LABPAT 14:45
PROVIDERS: ATTEND Surgery
DX: Z01.812 Encounter for preprocedural laboratory examination (principal); K40.90 Unilateral inguinal hernia, without obstruction or gangrene, not specified as recurrent
CPT/HCPCS: 36415; 85025; 86850; 86900; 86901

== ENCOUNTER 2024-10-17 05:43 | Day surgery (SDC) | payer MEDICARE ==
[2024-10-13 09:55] VITALS: BMI 26.4
[2024-10-17] MEDS: IV FLUID CONTINUATION 1,000 ML IV ONE ×3 (06:23→09:20)
[2024-10-17] MEDS: ACETAMINOPHEN TAB 500 MG TAB PO PRN (06:44)
[2024-10-17] MEDS: MIDAZOLAM 2 MG/2 ML VIAL IV ONE (06:47)
[2024-10-17] MEDS ORDERED: HYDROmorphone 0.5 MG/0.5 ML SYRINGE IVP PRN (07:00)
[2024-10-17] MEDS: DEXAMETHASONE SOD PHOSPHATE 4 MG/ML 1 ML VIAL IV ONE (07:05)
[2024-10-17] MEDS: ONDANSETRON 4 MG/2 ML VIAL IVP ONE (07:10)
[2024-10-17] MEDS: HEPARIN SODIUM,PORCINE 5,000 UNIT/ML 1 ML VIAL SQ PRN (07:17)
[2024-10-17] MEDS: LIDOCAINE 1%-EPI 1:100,000 20 ML VIAL SQ ONE ×2 (07:27→07:54)
[2024-10-17] MEDS ORDERED: ROPIVACAINE 5 MG/ML 30 ML VIAL ONE (07:32)
[2024-10-17] MEDS ORDERED: PROPOFOL 10 MG/ML 20 ML VIAL IV ONE (07:32)
[2024-10-17] MEDS ORDERED: ROCURONIUM 10 MG/ML (5 ML VIAL) IV ONE (07:32)
[2024-10-17] MEDS ORDERED: KETOROLAC 15 MG/ML 1 ML VIAL ONE (07:32)
[2024-10-17] MEDS ORDERED: SUCCINYLCHOLINE CHLORIDE 200 MG/10 ML VIAL IV ONE (07:32)
[2024-10-17] MEDS ORDERED: GLYCOPYRROLATE 0.2 MG/ML 2 ML VIAL ONE (07:32)
[2024-10-17] MEDS ORDERED: SODIUM CHLORIDE 0.9% (PF) 10 ML VIAL ONE (07:32)
[2024-10-17] MEDS ORDERED: PHENYLEPHRINE-0.9% NACL SYG 1,000 MCG/10 ML SYRINGE ONE (07:32)
[2024-10-17] MEDS ORDERED: LIDOCAINE 1% INJ 10MG/ML (20 ML MDV) ONE (07:32)
[2024-10-17] MEDS ORDERED: DEXAMETHASONE SOD PHOSPHATE 4 MG/ML 1 ML VIAL ONE (07:32)
[2024-10-17] MEDS ORDERED: KETAMINE HCL IN 0.9 % NACL 50 MG/5 ML SYRINGE ONE (07:32)
[2024-10-17] MEDS ORDERED: NEOSTIGMINE 1 MG/ML 10 ML VIAL ONE (07:32)
[2024-10-17] MEDS ORDERED: MIDAZOLAM 2 MG/2 ML VIAL ONE (07:32)
[2024-10-17] MEDS ORDERED: fentaNYL (PF) 50 MCG/ML 2 ML AMP ONE (07:32)
[2024-10-17] MEDS ORDERED: HYDROmorphone (PF) 1 MG/ML ONE (07:32)
[2024-10-17] MEDS: ceFAZolin 2 GM in DEXTROSE 5% IN WATER 50 ML IVPB PRN (07:36)
--- NOTE | 2024-10-17 08:44 | P.OP ---
Date of Procedure: 10/17/24 Preoperative Diagnosis: Right inguinal hernia Postoperative Diagnosis: Right inguinal hernia Procedure(s) Performed: Laparoscopic robotic assisted repair of right inguinal hernia Excision of cord lipoma Transversus abdominal block Anesthesia: ANDREEA Surgeon: Lowell Recio Estimated Blood Loss (ml): 5 Pathology: other (Cord lipoma) Condition: stable Disposition: PACU Description of Procedure: Th the patient's placed on the operating table in the supine position. The patient received general anesthesia. The patient's abdomen was prepped and draped in usual sterile fashion. The skin was anesthetized 1% local Xylocaine at the incision sites. Using an 11 blade a skin incision was made at the umbilicus. The fascia was grasped with a [place] and then the peritoneal cavity was entered with the Veress needle. Position of the Veress needle was confirmed with a positive drop test. After adequate insufflation a 5 mm trocar was placed into the peritoneal cavity. The Laparoscope was placed the peritoneal cavity. And a robotic 8 mm trocar was placed in the right lateral position and then another 8 mm robotic trochars placed in the left lateral position. The original 5 mm trocar was exchanged for a 8 mm trocar. A four quadrant transversus abdominal bloc was performed with 1% local xylocaine. The patient was placed in reverse Trendelenburg and then the patient was docked to the robot. Next the peritoneum over top of the hernia was incised and then using blunt and sharp dissection and electrocautery the hernia sac was dissected free from the floor of the inguinal canal. The cord lipoma was dissected free sent to pathology. The hernia sac was completely reduced into the peritoneal cavity. The cord lipoma was diseected free and sent to pathology And then using the Pro psychiatric social worker mesh the hernia was repaired. The peritoneum was then sutured with 20V lock suture. The patient was then undocked the robot. The needle was withdrawn from the peritoneal cavity. The umbilical trocar site was closed with 0 Ethibond suture. The skin was closed interrupted 3-0 Monocryl suture. Dermabond dressing was applied. Patient was sent to recovery in stable condition.
[2024-10-17] MEDS: LACTATED RINGERS 1,000 ML IV SCH (08:47)
[2024-10-17 08:50] VITALS: TEMP 97.5
[2024-10-17] MEDS: hydrALAZINE HCL 20 MG/ML 1 ML VIAL IVP STA (08:57)
[2024-10-17 10:08] VITALS: BP 138/75; PULSE 78; RESP 18
--- NOTE | 2024-10-17 12:41 | P.ANPRN ---
Procedure Note - Anesthesia - Nerve Block Performed Bilateral Erector Spinae Single Time Out Performed: Yes Date of Procedure: 10/17/24 Procedure Start Time: 06:46 Procedure Stop Time: 06:50 Location of Patient: PreOp Indication: Acute Post-Operative Pain, Requested by Surgeon Sedation Type: Sedate with meaningful contact maintained Preparation: Sterile Prep Position: Prone Needle Types: Pajunk Needle Gauge: 21 Ultrasound used to visualize needle placement: Yes Ultrasound used to observe medication spread: Yes Blood Aspirated: No Pain Paresthesia on Injection Noted: No Resistance on Injection: Normal Image Stored and Saved: Yes Events: Uneventful and Well Tolerated (Ropivacaine 0.5% 15 cc plus normal saline 10 cc plus dexamethasone 4 mg given bilaterally at L1)
== END 2024-10-17 10:09 | disposition home or self-care (01) ==
LOC: OR 05:43
PROVIDERS: ATTEND Surgery
DX: K40.90 Unilateral inguinal hernia, without obstruction or gangrene, not specified as recurrent (principal); K21.9 Gastro-esophageal reflux disease without esophagitis; G62.9 Polyneuropathy, unspecified; Z89.231 Acquired absence of right shoulder; Z88.0 Allergy status to penicillin; Z79.899 Other long term (current) drug therapy
CPT/HCPCS: 64468; 49650; C1781; J2250; J0330; J0360; J1644; J1100; J2710; J0690; J2405; J2003; J3010; J1171; J2795; J1885; J2704; J2371; J1596; 88304